=== PATIENT | male | born 1960 | race Caucasian/White ===

== ENCOUNTER 2017-04-11 08:30 | Outpatient (RCR) | payer OTHER, SELFPAY ==
--- NOTE | 2017-03-28 14:04 | HP.PTEVAL_ITS ---
Patient's Visit Information KOKO GAGE is a 56 year old M referred to Physical Therapy by EMERITA Carver NP.SELLWO with a diagnosis of s/p peroneal nerve release. Date of Evaluation: 03/28/17 Physical Therapist: Abigail Estevez - Visit Plan Frequency: 2x /Week Duration: 6 Weeks Plan: 2X/ week for 8 visits to increase L foot PROM, AAROM, AROM, gait training , LE strengthening with HEP - Subjective Subjective: Pt reports that back in January They did surgery in leg to relieve pressure on the nerve to hopefully get foot to move better. Now he can move it a tiny bit. They want him to do PT on the foot. He goes in for surgery on apr 14 on his back....possibility of rods and pins in back. Will have to put PT on Hold for back surgery. On Apr 03 of last year he wrapped his trunck around a pole and put rods and pins in his hip and out of the hospital had a serious case of drop foot...the nerve from knee to ankle was on nerve conduction test and they cut into that to relieve the pressure on that nerve. It has helped a little bit. They dont know how much he will get back. His back has DDD and the accidne t accelerated it. He has rods and pins in his neck as well. He can stand 10-15 min before legs will give out on him. Pins and needles in his feet constantly. He has neuropathy.....His whole L side is mumb including his tongue from the accident. He walks with a cane - Pain Neck Pain Intensity (Out of 10): 6 l leg pain Pain Intensity (Out of 10): 6 back pain Pain Intensity (Out of 10): 3 - Objective Palpation: Cold to the touch of the L foot and ankle. Gait: Walks with decreased stance time on the L and increase circumduction to clear L foot with a straight cane. L ankle AROM: DF -40 degrees, INV 12 degrees, EV 8 degrees, 51 degrees PF. L ankle MMT: DF 2-/5, PF 2-/5, EV 3+/5 and INV 3+/5 - Goals Goal 1:: I HEP Goal Time Frame: 4-6 Weeks Goal 2:: Increase L ankle DF to -20 degrees from neutral Goal Time Frame: 4-6 Weeks Goal 3:: Walk with a straight cane with more heel to toe gait pattern Goal Time Frame: 4-6 Weeks - Rehabilitation Potential Rehabilitation Potential: Good - Anticipated Interventions Patient/Client Instruction: Educate patient on: Condition, Plan of Care For the Purpose of:: To increase ROM, To improve nutrient delivery to tissue, To improve muscle performance and motor function, To improve performance and independence with ADL's, To improve gait and locomotor functions, To improve health of tissue, To decrease soft tissue restriction, To increase flexibility/ ROM Therapeutic Exercise to Include: Strength training, Balance training, Flexibilty training, Gait and locomotor training, Neuromotor development, Passive ROM, Active ROM For the Purpose of:: To decrease pain, To increase ROM, To improve nutrient delivery to tissue, To improve muscle performance and motor function, To improve ability to perform ADL's, To improve performance and independence with ADL's, To improve gait and locomotor functions, To improve health of tissue, To decrease soft tissue restriction, To increase flexibility/ROM, To improve endurance Manual Therapy Techniques to Include: Passive ROM, Soft tissue mobilization For the Purpose of:: To improve health of tissue, To decrease soft tissue restriction, To increase flexibility/ROM Functional electric stimulation: Yes For the Purpose of:: To increase ROM, To improve nutrient delivery to tissue, To improve muscle performance and motor function, To increase flexibility/ROM Thank you for the opportunity to evaluate your patient. For Medicare and Medicare HMO plans, please review the plan of care and approve it. It will need to be FAXED BACK to us at [phone] for Medicare purposes. Please let me know if there are questions or concerns regarding this plan of care. Physician Signature: Date:
--- NOTE | 2017-08-22 14:13 | HP.PTDCNRP_ITS ---
HP - Discharge Summary (1) - Patient Information KOKO GAGE was seen in my office for initial evaluation on 03/28/17. The following Plan of Care was established for this patient: Initial Frequency: 2x /Week Initial Duration: 6 Weeks - Anticipated Interventions Patient/Client Instruction: Educate patient on: Condition, Plan of Care For the Purpose of:: To increase ROM, To improve nutrient delivery to tissue, To improve muscle performance and motor function, To improve performance and independence with ADL's, To improve gait and locomotor functions, To improve health of tissue, To decrease soft tissue restriction, To increase flexibility/ ROM Therapeutic Exercise to Include: Strength training, Balance training, Flexibilty training, Gait and locomotor training, Neuromotor development, Passive ROM, Active ROM For the Purpose of:: To decrease pain, To increase ROM, To improve nutrient delivery to tissue, To improve muscle performance and motor function, To improve ability to perform ADL's, To improve performance and independence with ADL's, To improve gait and locomotor functions, To improve health of tissue, To decrease soft tissue restriction, To increase flexibility/ROM, To improve endurance Manual Therapy Techniques to Include: Passive ROM, Soft tissue mobilization For the Purpose of:: To improve health of tissue, To decrease soft tissue restriction, To increase flexibility/ROM Functional electric stimulation: Yes For the Purpose of:: To increase ROM, To improve nutrient delivery to tissue, To improve muscle performance and motor function, To increase flexibility/ROM This patient was last seen in our office 04/11/17. Pertinent comments regarding their Physical therapy will appear below: DC PT At this point I will be discontinuing this patient from physical therapy. I would be happy to see this patient again in the future if found appropriate by the physician. Thank you! Abigail Estevez
== END 2017-04-11 19:00 | disposition home or self-care (01) ==
LOC: PT 08:30
PROVIDERS: Visit Provider Nurse Practitioner
DX: S94.2 Injury of deep peroneal nerve at ankle and foot level (principal); X58.XXXD Exposure to other specified factors, subsequent encounter
CPT/HCPCS: 97110; 97161; G8978; G8979

== ENCOUNTER 2017-05-27 10:00 | Outpatient (RCR) | payer OTHER, SELFPAY ==
--- NOTE | 2017-04-28 12:24 | HP.PTEVAL_ITS ---
Patient's Visit Information KOKO GAGE is a 56 year old M referred to Physical Therapy by EMERITA Carver NP.SELLWO with a diagnosis of Lumbar Laminectomy. Date of Evaluation: 04/28/17 Physical Therapist: Abigail Estevez - Visit Plan Frequency: 2x /Week Duration: 4 Weeks Plan: 2X/ week for 4 weeks for LE stretching, light trunk AROM, core stability, L LE strengthening with HEP and modalitite if needed. - Subjective Subjective: Pt had surgery 2 weeks ago today (Apr 14). He thinks that it has helped some with his legs and the burning in his feet. He reports that his hip joints now hurt when on them a lot. He has a 5# lifting restriction and not supposed to be twisting. He sees the Surgeon on FriApr 30 and hoping some of his restrictions are lifted. He is having trouble putting socks on, still dragging the L foot, still uses the cane. He is sleeping at night and in a bed. He has not done any stairs since the surgery. He is able to sit to stand without the use of his UE's. He takes the oxycodone only in the morning unless he starts to hurt during the jose. Takes tylenol at night so he can sleep through the night. - Pain Back pain Pain Intensity (Out of 10): 0 L leg pain Pain Intensity (Out of 10): 0 - Objective Trunk AROM: flexion 50%, Ext 25%, SB B 50%. LE MMT: hip flex R 4/5 and L 3-/5 , R knee ext 4/5 and L 3-/5, R knee flex 4/5 and L knee flex 4-/5, hip abd R 4/ 5 and L 4-/5, able to do 1/2 ROM bridge. Only able to heel and toe raise on the R. L DF - 20 degrees DF. Tight HS B and gastroc stretching B. B HS and gastroc tightness. B Patellar DTR 2+/3 - Goals Goal 1:: I HEP Goal Time Frame: 4-6 Weeks Goal 2:: Increase L hip and knee strength by 1/2 muscle grade each plain. (At time of eval: LE MMT: hip flex R 4/5 and L 3-/5, R knee ext 4/5 and L 3-/5, R knee flex 4/5 and L knee flex 4-/5, hip abd R 4/5 and L 4-/5, able to do 1/2 ROM bridge. Goal Time Frame: 4-6 Weeks Goal 3:: Increase L ankle DF to -15 degrees from neutral Goal Time Frame: 4-6 Weeks Goal 4:: Decrease LBP to 2/10 with ADL's and gait. Goal Time Frame: 4-6 Weeks - Rehabilitation Potential Rehabilitation Potential: Good - Anticipated Interventions Patient/Client Instruction: Educate patient on: Plan of Care For the Purpose of:: To decrease pain, To decrease swelling/inflammation, To increase ROM, To improve nutrient delivery to tissue, To improve muscle performance and motor function, To improve ability to perform ADL's, To improve performance and independence with ADL's, To improve gait and locomotor functions , To improve health of tissue, To decrease soft tissue restriction, To increase flexibility/ROM Therapeutic Exercise to Include: Strength training, Postural training, Flexibilty training, Gait and locomotor training, Neuromotor development, Passive ROM, Active ROM, Dynamic Lumbar Stabilization For the Purpose of:: To decrease pain, To decrease swelling/inflammation, To increase ROM, To improve nutrient delivery to tissue, To improve muscle performance and motor function, To improve ability to perform ADL's, To increase tolerance to activity/condition/position, To improve ability of physical actions for home/community/work/leisure, To improve gait and locomotor functions, To improve health of tissue, To decrease soft tissue restriction, To increase flexibility/ROM Functional Training to Include: Gait training For the Purpose of:: To improve gait and locomotor functions, To improve safety with gait Manual Therapy Techniques to Include: Passive ROM, Soft tissue mobilization For the Purpose of:: To improve nutrient delivery to tissue, To improve health of tissue, To decrease soft tissue restriction, To increase flexibility/ROM IF ES: Yes Cryotherapy (ice pack, ice massage): Yes Thermo therapy (hot pack): Yes Ultrasound (thermal/non thermal): Yes For the Purpose of:: To decrease pain, To decrease swelling/inflammation, To improve nutrient delivery to tissue Thank you for the opportunity to evaluate your patient. For Medicare and Medicare HMO plans, please review the plan of care and approve it. It will need to be FAXED BACK to us at [phone] for Medicare purposes. Please let me know if there are questions or concerns regarding this plan of care. Physician Signature: Date:
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
== END 2017-05-27 19:00 | disposition home or self-care (01) ==
LOC: PT 10:00
PROVIDERS: Visit Provider Nurse Practitioner
DX: Z98.890 Other specified postprocedural states (principal)
CPT/HCPCS: 97110; 97113; 97162; 97530; G8978; G8979

== ENCOUNTER 2018-04-24 09:00 | Outpatient (RCR) | payer OTHER, SELFPAY ==
--- NOTE | 2018-02-24 15:08 | HP.PTEVAL_ITS ---
Patient's Visit Information KOKO GAGE is a 57 year old M referred to Physical Therapy by LAYA RODRIGUEZ with a diagnosis of L trochanteric bursitis s/P ORIF...Pt describes it as a replaced trochante. Date of Evaluation: 02/24/18 Physical Therapist: Abigail Estevez - Visit Plan Frequency: 1x/Week Duration: 2 Months Plan: 1X/ week for 8 weeks per the script for - Subjective Findings: Pt reports that 2 years ago he had plates and screws put in. His hip has started to bother him in May or July and could not lay on back to sleep for more than a month. He could only sleep on L side to get comfortable to sleep. They did MRI on his spine cause they also did spine surgery and that was normal. They did an x-ray of the hip and they told him there was nothing wrong with his hip. The surgeon said that the bursea was not flilled with fluid and the bone was rubbing against the muscle causing the pain. He gave the pt a shot and he feels better. It does feel better since the shot, can sleep better, and also ga ve him a nerve pain med with slight seditive to get him to sleep. He has the most pain with sitting and laying down. If he sits on his R hip he does not have as much pain as if he sits with equal weight. He quit doing his exercises cause it hurt too bad. He walks with a cane for about 6-7 months. He does not use it at home cause he holds onto things at home. He has N&T perminantly on the L side and has foot drop on the L. He had a brace for his foot but it hurt to bad to wear it...so now he is getting a custom one on . stairs: tries to go up and down recip with a railing. sit to stand from a chair...has to use arms to get up. - Pain L hip pain Pain Intensity (Out of 10): 3 - Objective Gait: walks with L hip flexion to help clear L drop foot with a cane. IF he does not walk with extreme hip flexion then he drops his L foot and trips on it (AFO coming this per patient). LE MMT: hip flex R 4-/5, L hip flex 3- /5, R hip abd 4/5 and L 3-/5, Bridge able to do 1/4 normal ROM, R knee flex 4-/5 and L knee flex 3+/5, R knee ext 4/5 and L 3+/5, L foot drop. Tight HS B and gastroc B. Pt struggles with rolling over in bed. Sit to stand: pt needs UE to get out of a chair. Unable to SLR on the L - Goals Goal 1:: I HEP Goal Time Frame: 2 Weeks Goal 2:: Decrease L hip pain to 1/10 with ADL's Goal Time Frame: 6-8 Weeks Goal 3:: Be able to walk with less hip flexion/circumduction with strength and the addition of a L AFO Goal Time Frame: 6-8 Weeks Goal 4:: Increase L LE strength....(at time of the eval: LE MMT: hip flex R 4- /5, L hip flex 3-/5, R hip abd 4/5 and L 3-/5, Bridge able to do 1/4 normal ROM, R knee flex 4-/5 and L knee flex 3+/5, R knee ext 4/5 and L 3+/5, L foot drop). Goal Time Frame: 6-8 Weeks - Rehabilitation Potential Rehabilitation Potential: Good - Anticipated Interventions Patient/Client Instruction: Educate patient on: Condition, Plan of Care For the Purpose of:: To decrease pain, To decrease swelling/inflammation, To increase ROM, To improve nutrient delivery to tissue, To improve muscle performance and motor function, To improve ability to perform ADL's, To increase tolerance to activity/condition/position, To improve performance and independence with ADL's, To improve ability of physical actions for home/community/work/leisure, To improve gait and locomotor functions, To improve health of tissue, To decrease soft tissue restriction, To improve balance, To improve safety with gait Therapeutic Exercise to Include: Strength training, Balance training, Gait and locomotor training, Active ROM, Dynamic Lumbar Stabilization For the Purpose of:: To decrease pain, To increase ROM, To improve nutrient delivery to tissue, To improve muscle performance and motor function, To improve ability to perform ADL's, To increase tolerance to activity/condition/position, To improve performance and independence with ADL's, To improve ability of physical actions for home/community/work/leisure, To improve gait and locomotor functions, To improve health of tissue, To improve balance Functional Training to Include: Gait training For the Purpose of:: To improve safety with gait Thank you for the opportunity to evaluate your patient. For Medicare and Medicare HMO plans, please review the plan of care and approve it. It will need to be FAXED BACK to us at [phone] for Medicare purposes. For Medicare only, by signing this I certify the plan of care. Please let me know if there are questions or concerns regarding this plan of care. Physician Signature: Date:
--- NOTE | 2018-04-24 09:30 | HP.PTDCSUM_ITS ---
HP - PT D/C Summary It has been my pleasure to treat KOKO GAGE under orders from LAYA RODRIGUEZ, for the diagnosis of L trochanteric bursitis s/P ORIF...Pt describes it as a replaced trochante for a total of 9 visit(s). Discharge Date: 04/24/18 Please see the following information for a summary of their discharge status. - Subjective Subjective: Pt reports that he is doing overall...his L side is about 6/10 average... His brace is going.... he reports that he still needs to get used to it. He reports that he hardly trips at all. - Pain L hip pain Pain Intensity (Out of 10): 6 R hip Pain Intensity (Out of 10): 0 Back pain Pain Intensity (Out of 10): 4 - Overall Improvement % Improvement: 30 - Objective Objective/Function: Gait: walks with WBOS still....improved heel to toe and less circumduction. Stairs: evidence of weakness when ascending the stairs with his L leg first... no toe catching today. at time of the eval: LE MMT: hip flex R 4-/5, L hip flex 3-/5, R hip abd 4/5 and L 3+/5, Bridge able to do 1/2 normal ROM, R knee flex 4-/5 and L knee flex 3+/5, R knee ext 4/5 and L 3+/5, L foot drop). - Goals Goal 1:: I HEP Goal Progress: Goal Met Goal 2:: Decrease L hip pain to 1/10 with ADL's Goal Progress: Not Progressing Goal 3:: Be able to walk with less hip flexion/circumduction with strength and the addition of a L AFO Goal Progress: Progressing Goal 4:: Increase L LE strength....(at time of the eval: LE MMT: hip flex R 4- /5, L hip flex 3-/5, R hip abd 4/5 and L 3-/5, Bridge able to do 1/4 normal ROM, R knee flex 4-/5 and L knee flex 3+/5, R knee ext 4/5 and L 3+/5, L foot drop). Goal Progress: Progressing - Plan Plan: DC PT to [facility] program - D/C Information Discharge Comments: DC PT to [facility] program. If there are questions or concerns regarding this patient's physical therapy, please feel free to call me at [phone]. Thank you for the referral of this patient. Sincerely, Abigail Estevez, MPT
== END 2018-04-24 19:00 | disposition home or self-care (01) ==
LOC: PT 09:00
DX: M70.62 Trochanteric bursitis, left hip (principal)
CPT/HCPCS: 97110; 97161; 97530; G8978; G8979

== ENCOUNTER 2018-11-11 12:30 | Outpatient (RCR) | payer MEDICAID, MEDICARE, SELFPAY ==
--- NOTE | 2018-09-09 17:31 | HP.PTEVAL_ITS ---
Patient's Visit Information KOKO GAGE is a 57 year old M referred to Physical Therapy by KATHLEEN BURGER with a diagnosis of Trochanteric L hip bursitis. Date of Evaluation: 09/09/18 Physical Therapist: VEENA Trinh - Visit Plan Frequency: 2x /Week Duration: 4 Weeks Plan: 2X/ week for 4 weeks for AT for L hip ROM, stretching, strengthening, core stability, gait training with HEP - Subjective Findings: Pt has a tear in cartilage in the hip joint and a lot of degenerative arthritis and the Ortho Dr sent in an order to get a steroid injection in his hip and he wants to see the pt in 3 months and then if the shot helps the pain in a little bit then they will know that it is the hip joint.... if it doesn't help then they will think that it is related to his back. His current symptoms: he has pain in the L groin and the side of the hip joint and he has pain on the lateral side of the leg ( calf area). Walking back to the treatment rooms about killed him. Pt feels that the water therapy did help him last time but then he wanted to get out and do weights and did them for awhile until the pain was just too bad. Pt has a brace for his L foot but he is too painful and can not wear it at this time. - Pain L hip pain Pain Intensity (Out of 10): 6 L calf pain Pain Intensity (Out of 10): 5 back pain Pain Intensity (Out of 10): 0 - Objective Gait: Walks with decreased stance time on the L.... and decreased DF on the L. He walks with a WBOS and with a single point cane with some veering. LE MMT: L hip abd 4-/5, R hip abd 4+/5, L hip flex 3-/4 and R hip flex 4+/5, L knee ext 3- /5 and R knee ext 4+/5, L knee flexion 4-/5 and R knee ext 4+/5. Pt is unable toe raise on the L foot. He is able to do so on the R. Pt has pain with SKC on the L - Goals Goal 1:: I HEP Goal Time Frame: 4-6 Weeks Goal 2:: Walk with more normal gait pattern with more equal weight bearing Goal Time Frame: 4-6 Weeks Goal 3:: Decrease L hip pain to 2/10 with ADL's and walking Goal Time Frame: 4-6 Weeks Goal 4:: Increase L hip strength by 1/2 muscle grade ( at time of eval: LE MMT: L hip abd 4-/5, R hip abd 4+/5, L hip flex 3-/4 and R hip flex 4+/5, L knee ext 3-/5 and R knee ext 4+/5, L knee flexion 4-/5 and R knee ext 4+/5. Pt is unable toe raise on the L foot. He is able to do so on the R). Goal Time Frame: 4-6 Weeks - Rehabilitation Potential Rehabilitation Potential: Good - Anticipated Interventions Patient/Client Instruction: Educate patient on: Condition, Plan of Care For the Purpose of:: To decrease pain, To increase ROM, To improve nutrient delivery to tissue, To improve muscle performance and motor function, To improve ability to perform ADL's, To increase tolerance to activity/condition/position, To decrease level of supervision to perform tasks, To improve ability of physical actions for home/community/work/leisure, To improve gait and locomotor functions, To improve health of tissue, To decrease soft tissue restriction, To increase flexibility/ROM Therapeutic Exercise to Include: Strength training, Balance training, Flexibilty training, Gait and locomotor training, Active ROM, Dynamic Lumbar Stabilization For the Purpose of:: To decrease pain, To increase ROM, To improve nutrient delivery to tissue, To improve muscle performance and motor function, To improve ability to perform ADL's, To increase tolerance to activity/condition/position, To improve performance and independence with ADL's, To improve ability of physical actions for home/community/work/leisure, To improve gait and locomotor functions, To improve health of tissue, To increase flexibility/ROM, To improve safety with gait Functional Training to Include: Gait training For the Purpose of:: To improve gait and locomotor functions Thank you for the opportunity to evaluate your patient. For Medicare and Medicare HMO plans, please review the plan of care and approve it. It will need to be FAXED BACK to us at [phone] for Medicare purposes. For Medicare only, by signing this I certify the plan of care. Please let me know if there are questions or concerns regarding this plan of care. Physician Signature: Date:
--- NOTE | 2018-10-20 11:27 | HP.PTREVAL ---
KATHLEEN BURGER, It has been my pleasure to treat KOKO GAGE over the last 9 visits for Trochanteric L hip bursitis. Please see the progress note below for an update on the physical therapy plan of care! Subjective: Pt reports that the pool was harder towards the end... half way through the water therapy his whole L sided was worse. Pt is going to get a shot the Oct in his lower spine. Pt does not think that the pool is helping. Pt's L side is numb constantly on the L side. Objective/Function: MMT: L hip abd 4/5, R hip abd 4+/5, L hip flex 3+/4 and R hip flex 4+/5, L knee ext 3-/5 and R knee ext 4+/5, L knee flexion 4/5 and R knee ext 4+/5. Pt is unable toe raise on the L foot. He is able to do so on the R). Gait: He walks with decrease stance time on the L LE ( L knee looks like it will give out on him). Palpation: tender over the L greater trochanter. Plan Plan: 2X/ week for 3 weeks for land based therapy to work on strengthening of L LE, neutral spine light core stability, functional gait and stairs with HEP Goals Goal 1:: I HEP Goal Time Frame: 4-6 Weeks Goal Progress: Goal Met Goal 2:: Walk with more normal gait pattern with more equal weight bearing Goal Time Frame: 4-6 Weeks Goal 3:: Decrease L hip pain to 2/10 with ADL's and walking Goal Time Frame: 4-6 Weeks Goal 4:: Increase L hip strength by 1/2 muscle grade ( at time of eval: LE MMT: L hip abd 4-/5, R hip abd 4+/5, L hip flex 3-/4 and R hip flex 4+/5, L knee ext 3-/5 and R knee ext 4+/5, L knee flexion 4-/5 and R knee ext 4+/5. Pt is unable toe raise on the L foot. He is able to do so on the R). Goal Time Frame: 4-6 Weeks Goal Progress: Progressing Anticipated Interventions Patient/Client Instruction: Educate patient on: Condition, Plan of Care For the Purpose of:: To decrease pain, To increase ROM, To improve nutrient delivery to tissue, To improve muscle performance and motor function, To improve ability to perform ADL's, To increase tolerance to activity/condition/position, To decrease level of supervision to perform tasks, To improve ability of physical actions for home/community/work/leisure, To improve gait and locomotor functions, To improve health of tissue, To decrease soft tissue restriction, To increase flexibility/ROM Therapeutic Exercise to Include: Strength training, Balance training, Flexibilty training, Gait and locomotor training, Active ROM, Dynamic Lumbar Stabilization For the Purpose of:: To decrease pain, To increase ROM, To improve nutrient delivery to tissue, To improve muscle performance and motor function, To improve ability to perform ADL's, To increase tolerance to activity/condition/position, To improve performance and independence with ADL's, To improve ability of physical actions for home/community/work/leisure, To improve gait and locomotor functions, To improve health of tissue, To increase flexibility/ROM, To improve safety with gait Functional Training to Include: Gait training For the Purpose of:: To improve gait and locomotor functions Please do not hesitate to contact me at [phone] by phone or if you have questions or concerns regarding this new plan of care! Sincerely, Abigail Estevez, MPT
--- NOTE | 2018-11-11 12:47 | HP.PTREVAL ---
KATHLEEN UBRGER, It has been my pleasure to treat KOKO GAGE over the last 13 visits for Trochanteric L hip bursitis. Please see the progress note below for an update on the physical therapy plan of care! Subjective: Pt had 3 shots in his back yesterday. He has to go back in december for more. He wants to be on hold for PT as he wants to talk to his Dr before hand Objective/Function: LE MMT has remained unchanged: L hip abd 4-/5, R hip abd 4+/5, L hip flex 3-/4 and R hip flex 4+/5, L knee ext 3-/5 and R knee ext 4+/5, L knee flexion 4-/5 and R knee ext 4+/5. Pt is unable toe raise on the L foot. He is able to do so on the R). Gait: Walks with L leg drag without his L AFO and without his cane and decrease weight shift onto the L LE with gait. Plan Plan: HOLD PT for now. Pt will call in after Dr appointment in a few weeks. Goals Goal 1:: I HEP Goal Time Frame: 4-6 Weeks Goal Progress: Goal Met Goal 2:: Walk with more normal gait pattern with more equal weight bearing Goal Time Frame: 4-6 Weeks Goal 3:: Decrease L hip pain to 2/10 with ADL's and walking Goal Time Frame: 4-6 Weeks Goal Progress: Not Progressing Goal 4:: Increase L hip strength by 1/2 muscle grade ( at time of eval: LE MMT: L hip abd 4-/5, R hip abd 4+/5, L hip flex 3-/4 and R hip flex 4+/5, L knee ext 3-/5 and R knee ext 4+/5, L knee flexion 4-/5 and R knee ext 4+/5. Pt is unable toe raise on the L foot. He is able to do so on the R). Goal Time Frame: 4-6 Weeks Goal Progress: Progressing Anticipated Interventions Patient/Client Instruction: Educate patient on: Condition, Plan of Care For the Purpose of:: To decrease pain, To increase ROM, To improve nutrient delivery to tissue, To improve muscle performance and motor function, To improve ability to perform ADL's, To increase tolerance to activity/condition/position, To decrease level of supervision to perform tasks, To improve ability of physical actions for home/community/work/leisure, To improve gait and locomotor functions, To improve health of tissue, To decrease soft tissue restriction, To increase flexibility/ROM Therapeutic Exercise to Include: Strength training, Balance training, Flexibilty training, Gait and locomotor training, Active ROM, Dynamic Lumbar Stabilization For the Purpose of:: To decrease pain, To increase ROM, To improve nutrient delivery to tissue, To improve muscle performance and motor function, To improve ability to perform ADL's, To increase tolerance to activity/condition/position, To improve performance and independence with ADL's, To improve ability of physical actions for home/community/work/leisure, To improve gait and locomotor functions, To improve health of tissue, To increase flexibility/ROM, To improve safety with gait Functional Training to Include: Gait training For the Purpose of:: To improve gait and locomotor functions Please do not hesitate to contact me at [phone] by phone or if you have questions or concerns regarding this new plan of care! Sincerely, Abigail Estevez, MPT
--- NOTE | 2019-01-05 11:26 | HP.PTDCSUM ---
HP - PT D/C Summary It has been my pleasure to treat KOKO GAGE under orders from KATHLEEN BURGER, for the diagnosis of Trochanteric L hip bursitis for a total of 13 visit(s). Discharge Date: 01/05/19 Please see the following information for a summary of their discharge status. - Subjective Subjective: Pt had 3 shots in his back yesterday. He has to go back in december for more. He wants to be on hold for PT as he wants to talk to his Dr before hand - Pain L hip pain Pain Intensity (Out of 10): 5 L calf pain Pain Intensity (Out of 10): 5 back pain Pain Intensity (Out of 10): 4 - Overall Improvement % Improvement: 30 - Objective Objective/Function: LE MMT has remained unchanged: L hip abd 4-/5, R hip abd 4+/5, L hip flex 3-/4 and R hip flex 4+/5, L knee ext 3-/5 and R knee ext 4+/5, L knee flexion 4-/5 and R knee ext 4+/5. Pt is unable toe raise on the L foot. He is able to do so on the R). Gait: Walks with L leg drag without his L AFO and without his cane and decrease weight shift onto the L LE with gait. - Goals Goal 1:: I HEP Goal Progress: Goal Met Goal 2:: Walk with more normal gait pattern with more equal weight bearing Goal 3:: Decrease L hip pain to 2/10 with ADL's and walking Goal Progress: Not Progressing Goal 4:: Increase L hip strength by 1/2 muscle grade ( at time of eval: LE MMT: L hip abd 4-/5, R hip abd 4+/5, L hip flex 3-/4 and R hip flex 4+/5, L knee ext 3-/5 and R knee ext 4+/5, L knee flexion 4-/5 and R knee ext 4+/5. Pt is unable toe raise on the L foot. He is able to do so on the R). Goal Progress: Progressing - Plan Plan: HOLD PT for now. Pt will call in after Dr appointment in a few weeks. - D/C Information Discharge Comments: DC PT If there are questions or concerns regarding this patient's physical therapy, please feel free to call me at [phone]. Thank you for the referral of this patient. Sincerely, Abigail Estevez MPT
== END 2018-11-11 19:00 | disposition home or self-care (01) ==
LOC: PT 12:30
DX: M70.62 Trochanteric bursitis, left hip (principal)
CPT/HCPCS: 97110; 97113; 97161; 97530

== ENCOUNTER 2020-05-30 10:00 | Outpatient (RCR) | payer OTHER, MEDICARE, SELFPAY ==
--- NOTE | 2020-04-19 13:55 | HP.PTEVAL_ITS ---
Patient's Visit Information KOKO GAGE is a 59 year old M referred to Physical Therapy by PROSPER CALLE with a diagnosis of S/P conversion L KACEY on 03-31-2020. 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 He has some pain 2/10. He wakes up if he rolls onto his L side. He takes a pill cause he has spasms in his legs when laying down and that quiets them spasms down. He has an AFO but he does not want to put it on until he is stronger and heels cause it was making his hip worse with it on prior to surgery. He might try the AFO tomm. Since his hip surgery he feels that his foot works better. He feels that the muscles are reattached better this surgery then the last surgery. He is using a cane now cause his back hurt his back. He is WBAT on the L LE. He has 2 steps from kitchen int othe garage and has a railing and does that just fine. He has hand rails on his toilet seat. The other day he went to sit down on the toilet and he felt something pop in his groin and it hurt... now it hurts off and on. - Pain L hip pain Pain Intensity (Out of 10): 2 - Objective Reviewed not crossing legs or ankles, no hip flexion greater than 90 degrees, and no pivioting on his L foot. Gait: straight cane, walks with increase s teppage gait on the L and increase L drop foot (which was there prior to surgery). PROM L hip flexion to 90 degrees. Pt is able to SLR. LE MMT: L hip flex 3+/5, Knee flex and ext 4-/5, hip abd 3+/5 DF 3-/5. R hip flex 4/5, knee flex and ext 4/5, hip abd NT, DF 4+/5. Pt is able to get up from the chair with use of his UE on the rails of the chair - Goals Goal 1:: I HEP Goal Time Frame: 4-6 Weeks Goal 2:: Increase L hip strength to 4/5 hip abd and hip flexion Goal Time Frame: 4-6 Weeks Goal 3:: Be able to go up and down steps recip with 1 hand rail for safety without hessitation Goal Time Frame: 4-6 Weeks Goal 4:: Be able to sleep through the night without having pain Goal Time Frame: 4-6 Weeks - Rehabilitation Potential Rehabilitation Potential: Good - Anticipated Interventions Patient/Client Instruction: Educate patient on: Condition, Plan of Care For the Purpose of:: To decrease pain, To increase ROM, To improve nutrient delivery to tissue, To increase oxygenation perfusion, To improve muscle performance and motor function, To improve ability to perform ADL's, To increase tolerance to activity/condition/position, To improve performance and independence with ADL's, To decrease level of supervision to perform tasks, To improve ability of physical actions for home/community/work/leisure, To improve gait and locomotor functions, To improve health of tissue, To increase flexibility/ROM, To improve balance, To improve safety with gait Therapeutic Exercise to Include: Strength training, Endurance training, Balance training, Body mechanics, Postural training, Gait and locomotor training, Neuromotor development, Active ROM For the Purpose of:: To decrease pain, To decrease swelling/inflammation, To increase ROM, To improve nutrient delivery to tissue, To improve muscle performance and motor function, To improve ability to perform ADL's, To increase tolerance to activity/condition/position, To improve performance and independence with ADL's, To decrease level of supervision to perform tasks, To improve ability of physical actions for home/community/work/leisure, To improve gait and locomotor functions, To improve health of tissue, To decrease soft tissue restriction, To improve balance, To improve safety with gait Functional Training to Include: Gait training For the Purpose of:: To improve gait and locomotor functions Thank you for the opportunity to evaluate your patient. For Medicare and Medicare HMO plans, please review the plan of care and approve it. It will need to be FAXED BACK to us at [phone] for Medicare purposes. For Medicare only, by signing this I certify the plan of care. Please let me know if there are questions or concerns regarding this plan of care. Physician Signature: Date:
--- NOTE | 2020-05-30 10:58 | HP.PTDCSUM ---
It has been my pleasure to treat KOKO GAGE referred by PROSPER CALLE, with the diagnosis of S/P conversion L KACEY on 03-31-2020 for a total of 15 visit(s). Discharge Date: 05/30/20 Please see the following information for a summary of their discharge status. Subjective: Pt reports that he does walk much better with his AFO on. He still complains of L joint soreness that his Dr reports will take time to heal. Pt will try and come in here 2-3 X/ week to work on gym equipment and the bike. L hip pain Pain Intensity (Out of 10): 3 Back pain Pain Intensity (Out of 10): 1 L lateral thigh pain Pain Intensity (Out of 10): 3 % Improvement: 75 Objective/Function: Pt walks much better with his AFO.... less veering and no catching his toe. RECOMMEND PT as for a spring in his AFO to assist in more DF to prevent tripping on the stairs off of curbs etc. Goal 1:: I HEP Goal Progress: Goal Met Goal 2:: Increase L hip strength to 4/5 hip abd and hip flexion Goal Progress: Progressing Goal 3:: Be able to go up and down steps recip with 1 hand rail for safety without hessitation Goal Progress: Goal Met Goal 4:: Be able to sleep through the night without having pain Goal Progress: Goal Met Plan: I H&W program to continue with strengthening. Recommend pt put his L AFO back on as he has tripped several times without it and with a cane. Discharge Comments: DC PT to [facility] If there are questions or concerns regarding this patient's physical therapy, please feel free to call me at [phone]. Thank you for the referral of this patient. Sincerely, Abigail Estevez, MPT
== END 2020-05-30 19:00 | disposition home or self-care (01) ==
LOC: PT 10:00
DX: Z96.698 Presence of other orthopedic joint implants (principal)
CPT/HCPCS: 97110; 97116; 97161; 97530

== ENCOUNTER 2021-02-13 10:08 | Emergency (ER) | payer OTHER, SELFPAY ==
[2021-02-13 10:09] VITALS: BP 132/87; PULSE 94; RESP 20; TEMP 36.4; O2SAT 98; BMI 29.4
--- NOTE | 2021-02-13 10:19 | EX.ED.UPPERE ---
HPI History of Present Illness Chief Complaint: Upper Extremity Injury Informant: patient Narrative Narrative: 60-year-old male presents to the emergency department for the evaluation of left wrist pain. Patient states that yesterday he was trying to get a tire off of a vehicle and he hit it with his left hand. He states he immediately had pain over the volar radial aspect that progressively worsened during the day. He is left-handed. He states that his thumb feels numb. PFSH PFS Medical History (Updated 02/13/21 @ 11:[address] Luan Botello DO) COPD (chronic obstructive pulmonary disease) Home Medications albuterol sulfate [Ventolin HFA] 1 - 2 puff INHALATION Q6H PRN PRN 04/15/16 [History Last Taken Unknown] budesonide-formoterol [Symbicort] 1 puff DAILY 04/15/16 [History Last Taken Unknown] polyethylene glycol 3350 17 g PO PRN PRN 04/15/16 [History Last Taken Unknown] sennosides-docusate sodium 2 tab PO BID 04/15/16 [History Last Taken 04/15/16 12:45] omeprazole 40 mg PO/SL DAILY 02/13/21 [History Last Taken Unknown] Allergy/AdvReac Type Severity Reaction Status Date / Time guaifenesin AdvReac Upset Verified 02/13/21 10:11 Stomach Surgical History (Updated 02/13/21 @ 10:[address] Luan Botello DO) S/P ORIF (open reduction internal fixation) fracture Social History (Updated 02/13/21 @ 10:[address] Luan Botello DO) Smoking Status: Current every day smoker tobacco type: cigarettes substance use type: does not use ROS ROS ED Constitutional Constitutional ED: Denies chills, fever(s) or weight loss Eyes Eyes: Denies change in vision or diplopia ENT ENT ED: Denies ear pain, rhinorrhea or sore throat Cardiovascular Cardiovascular: Denies chest pain, orthopnea, palpitations or racing heartbeat Respiratory/Chest Respiratory/Chest: Denies cough, dyspnea or orthopnea Gastrointestinal Gastrointestinal: Denies abdominal pain, diarrhea, nausea or vomiting Genitourinary Genitourinary ED: Denies dysuria, hematuria or urinary frequency Musculoskeletal Musculoskeletal: Reports other Details: See history of present illness ; Denies arthralgias or myalgias Integumentary Denies abscess or rash Neurologic Neurologic: Denies headache(s) or weakness Psychiatric Psychiatric: Denies anxiety, depression, suicidal ideation or suicidal thoughts Endocrine Endocrinology: Denies polydipsia, polyphagia or polyuria Allergic/Immunologic Allergic/Immunologic ED: Denies mouth swelling, tongue swelling or urticaria EXAM Physical Exam Const Vital Signs: 02/13/21 10:09 Temperature 97.6 F L Temperature Source Temporal Pulse Rate 94 Respiratory Rate 20 H Blood Pressure 132/87 H Blood Pressure Mean 102 Pulse Ox 98 Oxygen Delivery Method Room Air Positive well nourished and well developed General Appearance ED: well developed HEENT Reports normocephalic, head/scalp atraumatic and moist mucous membranes normocephalic and atraumatic Eyes PERRL and EOMs intact bilaterally Neck no lymphadenopathy, supple and no JVD Resp normal respiratory effort and clear to auscultation bilaterally Cardio regular rate, regular rhythm and no murmurs GI normal to inspection, nondistended, normoactive bowel sounds and non-tender Palpation: soft Back/Spine no CVA tenderness and normal ROM Extremity Extremity Narrative: Patient has tenderness palpation of the volar radial aspect of the left wrist. There is minimal tenderness on the dorsal aspect. Neurovascularly appears intact distally. Normal opposition. Painful range of motion however. General Extremety ED: Negative for edema General Extremity: Negative for edema Neuro oriented x3 and CN's II-XII intact bilaterally Sensorium / Orientation: alert Motor Exam: strength 5/5 throughout Psych mental status grossly normal Mood & Affect: Negative for depressed or tearful Skin no rashes or lesions noted and no wounds MDM MDM MDM Narrative Medical decision making narrative: My interpretation of the plain films of the left wrist is no acute fracture. Radiology concurs. Patient will be placed in a Velcro wrist splint. Anti-inflammatories ice and rest. Follow-up with primary care 10 to 14 days if not improved Discharge Plan Triage Chief Complaint: Upper Extremity Injury ED Provider: Luan Botello Dx/Rx/DC Orders Clinical Impression: Left wrist sprain Instructions: ED Wrist Sprain Prescriptions: No Action polyethylene glycol 3350 17 GM powder in packet 17 g PO PRN PRN (Reason: Constipation) RF: 0 sennosides-docusate sodium 1 EACH tablet 2 tab PO BID RF: 0 albuterol sulfate [Ventolin HFA] 1 INHALER inhaler 1 - 2 puff inhalation Q6H PRN PRN (Reason: Wheezing) RF: 0 budesonide-formoterol [Symbicort] 1 INHALER inhaler 1 puff DAILY RF: 0 omeprazole 40 mg PO/SL DAILY RF: 0 [facility] [Primary Care Provider] - 10-14 Days if not better Disposition Disposition: Home, Self Care
--- NOTE | 2021-02-13 10:25 | RAD_ITS ---
STUDY: X-RAY - LEFT WRIST REASON FOR EXAM: Left wrist pain, left wrist injury yesterday. TECHNIQUE: 3 view(s) of the wrist were obtained. COMPARISON: None. FINDINGS: Normal visualized distal radius and ulna. Normal radiocarpal articulation. Normal distal radioulnar articulation. Normal carpal bones. Normal carpal articulations. Normal carpometacarpal articulation of the thumb. Normal second through fifth carpometacarpal articulations. Normal visualized metacarpal bones. The soft tissue structures are unremarkable. RAD/Wrist min 3 Views IMPRESSION: No demonstrated left wrist fracture. Electronically Signed: Miles Ordoñez MD at 10:56 EST Tel , Service support ,
[2021-02-13 11:24] VITALS: BP 139/84; PULSE 87
== END 2021-02-13 11:26 | disposition home or self-care (01) ==
PROVIDERS: Emergency Provider Emergency Medicine
DX: S63.502A Unspecified sprain of left wrist, initial encounter (principal); W22.8XXA Striking against or struck by other objects, initial encounter; Y93.9 Activity, unspecified; Y92.9 Unspecified place or not applicable; J44.9 Chronic obstructive pulmonary disease, unspecified; F17.210 Nicotine dependence, cigarettes, uncomplicated
CPT/HCPCS: 73110; 99282

== ENCOUNTER 2021-11-21 10:00 | Outpatient (RCR) | payer OTHER, SELFPAY ==
--- NOTE | 2021-10-24 18:11 | HP.PTEVAL ---
Patient's Visit Information KOKO GAGE is a 60 year old M referred to Physical Therapy by GENNY NAIK with a diagnosis of S/P back surgery 10-16-21 (Rods and mesh and fusion). Date of Evaluation: 10/24/21 Physical Therapist: VEENA Trinh - Visit Plan Frequency: 2-3x /Week Duration: 2 Months Plan: 2-3 X/ week for 15 visits for neutral spine core stability, LE strengthening, postural exercises, gait mechanics, balance, with HEP. May use AT, US, MT if needed. - Subjective Pt has surgery on 10-16-2021. He had mesh and rods place that will fuse together between L4/L5/S1. He is not allowed to bend, lift greater than 5# and twist. He is sleeping ok and can sleep on his L side. He takes pain meds from a prior injury. He walks with a straight cane and has for the past month since the pain was so bad. He reports that his balance is off. he has a L AFO. He reports no other weakness. He has been doing a lot of sitting. He goes back to on the to hopefully be released to drive and go back to [employer]. - Pain back pain Pain Intensity (Out of 10): 4 - Objective Gait: Walks with short stride, slight increase veering with a straight cane. (increased pain after walking straight up). Pt has increase back pain walking from the front doors back to the treatment rooms. Pt was able to walk on toes and able to raise his R toes and can not on the L(wears an AFO). Trunk AROM: bend 10% flexion. Patellar DTR's R 2+/3 and L 1+/3. LE MMT: R hip flex 7.5# and L hip flex 4.7#. R knee ext 11.7, and L knee ext 15#. R knee flex 11.5 and L 7.3. R supine hip abd12.3 and L 7.4. + SLR on the L. Pt is able to 1/4 normal ROM bridge. Tight HS B. + SLUMP test B. Sit to stand: Pt is able to get out of the chair without using his arms but it causes increase pain. - Balance/Special Test Scores Oswestry Low Back Score: 20 - Goals Goal 1:: I HEP Goal Time Frame: 8-12 Weeks Goal 2:: Be able to walk around the dept without an AD without back pain. Goal Time Frame: 8-12 Weeks Goal 3:: Increase LE strength. (at time of the eval: LE MMT: R hip flex 7.5# and L hip flex 4.7#. R knee ext 11.7, and L knee ext 15#. R knee flex 11.5 and L 7.3. R supine hip abd12.3 and L 7.4) Goal Time Frame: 8-12 Weeks Goal 4:: Be able to stand 7 hours at his job without pain Goal Time Frame: 8-12 Weeks Goal 5:: Be able to sit to stand without UE support X 10 attempts without pain Goal Time Frame: 8-12 Weeks - Rehabilitation Potential Rehabilitation Potential: Good - Anticipated Interventions Patient/Client Instruction: Educate patient on: Condition, Plan of Care For the Purpose of:: To decrease pain, To increase ROM, To improve nutrient delivery to tissue, To increase oxygenation perfusion, To improve muscle performance and motor function, To improve ability to perform ADL's, To increase tolerance to activity/condition/position, To improve performance and independence with ADL's, To decrease level of supervision to perform tasks, To improve ability of physical actions for home/community/work/leisure, To improve gait and locomotor functions, To improve health of tissue, To decrease soft tissue restriction, To increase flexibility/ROM, To improve endurance, To improve balance, To improve safety with gait Therapeutic Exercise to Include: Strength training, Endurance training, Balance training, Coordination, Body mechanics, Postural training, Flexibilty training, Gait and locomotor training, Neuromotor development, In an aquatic setting, Passive ROM, Active ROM, Dynamic Lumbar Stabilization, Scapular Strength/Stabilization For the Purpose of:: To decrease pain, To decrease swelling/inflammation, To increase ROM, To improve nutrient delivery to tissue, To increase oxygenation perfusion, To improve muscle performance and motor function, To improve ability to perform ADL's, To increase tolerance to activity/condition/position, To improve performance and independence with ADL's, To decrease level of supervision to perform tasks, To improve ability of physical actions for home/community/work/leisure, To improve gait and locomotor functions, To improve health of tissue, To decrease soft tissue restriction, To increase flexibility/ROM, To improve endurance, To improve balance, To improve safety with gait Functional Training to Include: Gait training For the Purpose of:: To improve gait and locomotor functions, To improve safety with gait Manual Therapy Techniques to Include: Functional dry needling, Soft tissue mobilization For the Purpose of:: To decrease pain, To increase ROM, To improve nutrient delivery to tissue, To increase oxygenation perfusion, To improve muscle performance and motor function, To improve ability to perform ADL's Ultrasound (thermal/non thermal): Yes For the Purpose of:: To decrease pain, To increase ROM, To improve nutrient delivery to tissue, To increase oxygenation perfusion, To improve muscle performance and motor function, To improve ability to perform ADL's Thank you for the opportunity to evaluate your patient. For Medicare and Medicare HMO plans, please review the plan of care and approve it. It will need to be FAXED BACK to us at [phone] for Medicare purposes. For Medicare only, by signing this I certify the plan of care. Please let me know if there are questions or concerns regarding this plan of care. Physician Signature: Date:
--- NOTE | 2021-11-21 10:29 | HP.PTREVAL_ITS ---
GENNY NAIK, It has been my pleasure to treat KOKO GAGE over the last 10 visits for S/P back surgery 10-16-21 (Rods and mesh and fusion). Please see the progress note below for an update on the physical therapy plan of care! Subjective: Pt reports that he is better but still has pain. Objective/Function: Sit to stand X 10.... if he uses his hands he has no pain but if he does not use his arms then he has pain. He can not stand for more than an hour which is better than when he first came in. hip flex R 13.8 and L 11.3 and R knee ext 20.4 and l 17.3 and R knee flex 16.1 and L 14.7 Plan Plan: 2-3 X/ week for 15 visits for neutral spine core stability, LE strengthening, postural exercises, gait mechanics, balance, with HEP. May use AT, US, MT if needed. Balance/Gait/Functional tests - Balance/Special Test Scores Oswestry Low Back Score: 19 Goals Goal 1:: I HEP Goal Time Frame: 8-12 Weeks Goal Progress: Progressing Goal 2:: Be able to walk around the dept without an AD without back pain. Goal Time Frame: 8-12 Weeks Goal Progress: Progressing Goal 3:: Increase LE strength. (at time of the eval: LE MMT: R hip flex 7.5# and L hip flex 4.7#. R knee ext 11.7, and L knee ext 15#. R knee flex 11.5 and L 7.3. R supine hip abd12.3 and L 7.4) Goal Time Frame: 8-12 Weeks Goal Progress: Progressing Goal 4:: Be able to stand 7 hours at his job without pain Goal Time Frame: 8-12 Weeks Goal Progress: Progressing Goal 5:: Be able to sit to stand without UE support X 10 attempts without pain Goal Time Frame: 8-12 Weeks Goal Progress: Progressing Anticipated Interventions Patient/Client Instruction: Educate patient on: Condition, Plan of Care For the Purpose of:: To decrease pain, To increase ROM, To improve nutrient delivery to tissue, To increase oxygenation perfusion, To improve muscle performance and motor function, To improve ability to perform ADL's, To increase tolerance to activity/condition/position, To improve performance and in dependence with ADL's, To decrease level of supervision to perform tasks, To improve ability of physical actions for home/community/work/leisure, To improve gait and locomotor functions, To improve health of tissue, To decrease soft tissue restriction, To increase flexibility/ROM, To improve endurance, To improve balance, To improve safety with gait Therapeutic Exercise to Include: Strength training, Endurance training, Balance training, Coordination, Body mechanics, Postural training, Flexibilty training, Gait and locomotor training, Neuromotor development, In an aquatic setting, Passive ROM, Active ROM, Dynamic Lumbar Stabilization, Scapular Strength/Stabilization For the Purpose of:: To decrease pain, To decrease swelling/inflammation, To increase ROM, To improve nutrient delivery to tissue, To increase oxygenation perfusion, To improve muscle performance and motor function, To improve ability to perform ADL's, To increase tolerance to activity/condition/position, To improve performance and independence with ADL's, To decrease level of supervision to perform tasks, To improve ability of physical actions for home/community/work/leisure, To improve gait and locomotor functions, To improve health of tissue, To decrease soft tissue restriction, To increase flexibility/ROM, To improve endurance, To improve balance, To improve safety with gait Functional Training to Include: Gait training For the Purpose of:: To improve gait and locomotor functions, To improve safety with gait Manual Therapy Techniques to Include: Functional dry needling, Soft tissue mobilization For the Purpose of:: To decrease pain, To increase ROM, To improve nutrient delivery to tissue, To increase oxygenation perfusion, To improve muscle performance and motor function, To improve ability to perform ADL's Ultrasound (thermal/non thermal): Yes For the Purpose of:: To decrease pain, To increase ROM, To improve nutrient delivery to tissue, To increase oxygenation perfusion, To improve muscle perform ance and motor function, To improve ability to perform ADL's Please do not hesitate to contact me at [phone] by phone or if you have questions or concerns regarding this new plan of care! Sincerely, VEENA Trinh
--- NOTE | 2022-03-11 09:04 | HP.PTDCNRP_ITS ---
KOKO GAGE was seen in my office for initial evaluation on 10/24/21. The following Plan of Care was established for this patient: Initial Frequency: 2-3x /Week Initial Duration: 2 Months Patient/Client Instruction: Educate patient on: Condition, Plan of Care For the Purpose of:: To decrease pain, To increase ROM, To improve nutrient delivery to tissue, To increase oxygenation perfusion, To improve muscle performance and motor function, To improve ability to perform ADL's, To increase tolerance to activity/condition/position, To improve performance and independence with ADL's, To decrease level of supervision to perform tasks, To improve ability of physical actions for home/community/work/leisure, To improve gait and locomotor functions, To improve health of tissue, To decrease soft tissue restriction, To increase flexibility/ROM, To improve endurance, To improve balance, To improve safety with gait Therapeutic Exercise to Include: Strength training, Endurance training, Balance training, Coordination, Body mechanics, Postural training, Flexibilty training, Gait and locomotor training, Neuromotor development, In an aquatic setting, Passive ROM, Active ROM, Dynamic Lumbar Stabilization, Scapular Strength/Stabilization For the Purpose of:: To decrease pain, To decrease swelling/inflammation, To increase ROM, To improve nutrient delivery to tissue, To increase oxygenation perfusion, To improve muscle performance and motor function, To improve ability to perform ADL's, To increase tolerance to activity/condition/position, To improve performance and independence with ADL's, To decrease level of supervi geov[place] to perform tasks, To improve ability of physical actions for home/community/work/leisure, To improve gait and locomotor functions, To improve health of tissue, To decrease soft tissue restriction, To increase flexibility/ROM, To improve endurance, To improve balance, To improve safety with gait Functional Training to Include: Gait training For the Purpose of:: To improve gait and locomotor functions, To improve safety with gait Manual Therapy Techniques to Include: Functional dry needling, Soft tissue mobilization For the Purpose of:: To decrease pain, To increase ROM, To improve nutrient delivery to tissue, To increase oxygenation perfusion, To improve muscle performance and motor function, To improve ability to perform ADL's Ultrasound (thermal/non thermal): Yes For the Purpose of:: To decrease pain, To increase ROM, To improve nutrient delivery to tissue, To increase oxygenation perfusion, To improve muscle performance and motor function, To improve ability to perform ADL's This patient was last seen in our office 11/21/21. Pertinent comments regarding their Physical therapy will appear below: Pt did not reschedule. DC PT At this point I will be discontinuing this patient from physical therapy. I would be happy to see this patient again in the future if found appropriate by the physician. Thank you! Abigail Estevez, VEENA Balance/Gait/Functional tests - Balance/Special Test Scores Oswestry Low Back Score: 19
== END 2021-11-21 19:00 | disposition home or self-care (01) ==
LOC: PT 10:00
DX: M48.061 Spinal stenosis, lumbar region without neurogenic claudication (principal)
CPT/HCPCS: 97110; 97161

== ENCOUNTER 2022-07-03 15:58 | Emergency (ER) | payer OTHER, SELFPAY ==
[2022-07-03] VITALS (7 sets, daily range): BP systolic 112–141; BP diastolic 75–120; PULSE 81–94; RESP 9–18; TEMP 34.9; O2SAT 91–97; BMI 32.9
--- NOTE | 2022-07-03 16:39 | EDS_ITS ---
HPI History of Present Illness HPI Narrative: Patient presents with left hip pain that began today. 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 Patient states he had a revision of his total hip replacement done 1 month ago. Patient states he was unable to stand and ambulate. Patient denies any paresthesias or weakness. Patient describes the pain as aching and burning. Patient states the pain is worse with any movement of his left lower extremity. Patient denies any head injury or loss of consciousness. Patient denies any other injuries. Chief Complaint: Lower Extremity Injury Informant: patient Onset/Context/Timing Onset: Today Context: Sudden Onset Timing: Continuous Quality of Pain: Aching and Burning Location: Left hip Worsened by: Movement Relieved by: Rest Associated Symptoms Associated Symptoms: Negative for Parasthesia, Weakness or Loss of Funtion [facility] Medical History (Updated 07/03/22 @ 19:[address] Lamont Silva DO) COPD (chronic obstructive pulmonary disease) History of revision of total replacement of left hip joint Home Medications albuterol sulfate 90 mcg/actuation aerosol inhaler (Ventolin HFA) 1 - 2 puff inhalation Q6H PRN PRN Wheezing 04/15/16 [History Last Taken Unknown] budesonide-formoterol HFA 160 mcg-4.5 mcg/actuation aerosol inhaler (Symbicort) 1 puff DAILY 04/15/16 [History Last Taken Unknown] polyethylene glycol 3350 17 gram oral powder packet 17 g PO PRN PRN Constipation 04/15/16 [History Last Taken Unknown] sennosides 8.6 mg-docusate sodium 50 mg tablet 2 tab PO BID 04/15/16 [History Last Taken 04/15/16 12:45] omeprazole 40 mg PO/SL DAILY 02/13/21 [History Last Taken Unknown] Allergy/AdvReac Type Severity Reaction Status Date / Time guaifenesin AdvReac Upset Verified 02/13/21 10:11 Stomach Surgical History (Updated 07/03/22 @ 16:[address] Lamont Silva DO) History of total left hip replacement S/P ORIF (open reduction internal fixation) fracture Social History Smoking Status: Current every day smoker tobacco type: cigarettes substance use type: does not use ROS ROS ED Constitutional Constitutional ED: Denies chills or fever(s) Eyes Eyes: Denies blurry vision or change in vision ENT ENT ED: Denies rhinorrhea or sore throat Cardiovascular Cardiovascular: Denies chest pain or palpitations Respiratory/Chest Respiratory/Chest: Denies cough or dyspnea Gastrointestinal Gastrointestinal: Denies nausea or vomiting Genitourinary Genitourinary ED: Denies dysuria or hematuria Musculoskeletal Musculoskeletal: Reports neck pain; Denies back pain Integumentary Denies abscess or rash Neurologic Neurologic: Denies headache(s) or weakness Allergic/Immunologic Allergic/Immunologic ED: Denies mouth swelling or urticaria EXAM Physical Exam Const Vital Signs: 07/03/22 15:59 07/03/22 18:05 07/03/22 18:10 Temperature 94.9 F L Temperature Source Oral Pulse Rate 94 81 Pulse Rate [1 (Initial Baseline)] 81 Pulse Rate [2] 88 Pulse Rate [3] 87 Pulse Rate [4] 87 Pulse Rate [5] 87 Pulse Rate [6] 84 Respiratory Rate 15 12 Respiratory Rate [1 (Initial Baseline)] 9 L Respiratory Rate [2] 16 Respiratory Rate [3] 18 Respiratory Rate [4] 13 Respiratory Rate [5] 11 L Respiratory Rate [6] 13 Blood Pressure 134/120 H 112/86 H Blood Pressure [1 (Initial Baseline)] 128/92 H Blood Pressure [2] 134/103 H Blood Pressure [3] 141/86 H Blood Pressure [4] 129/75 H Blood Pressure [5] 121/75 H Blood Pressure [6] 116/80 Blood Pressure Mean 124 Pulse Ox 96 95 Oxygen Delivery Method Room Air Room Air Oxygen Delivery Method [1 (Initial Baseline)] Nasal Cannula Oxygen Delivery Method [2] Nasal Cannula Oxygen Delivery Method [4] Nasal Cannula Oxygen Delivery Method [5] Room Air Oxygen Delivery Method [6] Nasal Cannula Oxygen Flow Rate (L/min) Oxygen Flow Rate (L/min) [1 (Initial Baseline)] 2 Oxygen Flow Rate (L/min) [2] 2 Oxygen Flow Rate (L/min) [3] 2 Oxygen Flow Rate (L/min) [4] 4 Oxygen Flow Rate (L/min) [5] 4 Oxygen Flow Rate (L/min) [6] 2 07/03/22 18:54 Temperature Temperature Source Pulse Rate 85 Pulse Rate [1 (Initial Baseline)] Pulse Rate [2] Pulse Rate [3] Pulse Rate [4] Pulse Rate [5] Pulse Rate [6] Respiratory Rate 11 L Respiratory Rate [1 (Initial Baseline)] Respiratory Rate [2] Respiratory Rate [3] Respiratory Rate [4] Respiratory Rate [5] Respiratory Rate [6] Blood Pressure 117/83 H Blood Pressure [1 (Initial Baseline)] Blood Pressure [2] Blood Pressure [3] Blood Pressure [4] Blood Pressure [5] Blood Pressure [6] Blood Pressure Mean 94 Pulse Ox 96 Oxygen Delivery Method Nasal Cannula Oxygen Delivery Method [1 (Initial Baseline)] Oxygen Delivery Method [2] Oxygen Delivery Method [4] Oxygen Delivery Method [5] Oxygen Delivery Method [6] Oxygen Flow Rate (L/min) 2 Oxygen Flow Rate (L/min) [1 (Initial Baseline)] Oxygen Flow Rate (L/min) [2] Oxygen Flow Rate (L/min) [3] Oxygen Flow Rate (L/min) [4] Oxygen Flow Rate (L/min) [5] Oxygen Flow Rate (L/min) [6] Positive well nourished and well developed General Appearance ED: well developed and NAD HEENT normocephalic and atraumatic Extremity Extremity Narrative: The left lower extremity is internally rotated and flexed. There is some shortening noted. Range of motion was limited in all motions of the left lower extremity secondary to pain. Pedal pulses are equal bilaterally. Sensation was intact to light touch bilaterally in the lower extremities. Strength is 5/5 bilaterally in the lower extremities. Neuro oriented x3, CN's II-XII intact bilaterally, moves all extremities and no sensory deficits noted Sensorium / Orientation: alert Motor Exam: strength 5/5 throughout Psych mental status grossly normal MDM MDM MDM Narrative Medical decision making narrative: Differential diagnosis includes dislocation, fracture, and tendon strain. X- rays of the left hip will be obtained to assess for fracture and dislocation. Radiography Diagnostic Testing: Clinical Impression(s) from Imaging Studies Hip/Pelvis X-Ray 07/03/22 17:18 IMPRESSION: Left hip dislocation. Electronically Signed: Lai Webster MD at 17:44 EDT , Hip/Pelvis X-Ray 07/03/22 19:08 IMPRESSION: Successful reduction Electronically Signed: Lai Webster MD at 19:23 EDT , X-rays of the left hip were obtained. There are 3 views. On my independent interpretation, there is a dislocation of the prosthesis of the left hip. There is an old avulsion fracture of the acetabulum. There is no acute fracture. Radiologist also interpreted the x-rays and agrees. Repeat x-rays of the left hip were obtained after reduction. There are 3 views. On my independent interpretation, there is satisfactory reduction of the dislocation. There is no acute fracture. Radiologist also interpreted the x- rays and agrees. Treatment and Re-Evaluation Narrative: Patient was advised of the risks and benefits of conscious sedation. Patient is agreeable with the plan for conscious sedation. Patient was given the opportunity ask questions. No further questions. Patient was placed on continuous cardiac and pulse oximeter monitors. Patient was placed on oxygen by nasal cannula. Patient was given a total of 180 mg of propofol. There were multiple unsuccessful attempts at reduction of the left hip. Patient had no hypoxic episodes. The patient was resedated with [address] Muniz was asked to come in and reduce the hip. He was successful at reducing the hip. Repeat x-rays were obtained. There is satisfactory reduction of the hip. Patient had no hypoxic episodes or dysrhythmias. Patient tolerated procedure well. Knee immobilizer was applied. Patient feels better on reevaluation. Patient was instructed to continue to wear his knee immobilizer until he follows up with his orthopedic surgeon. Patient understands and is agreeable with the plan. All questions were answered. Discharge Plan Triage Chief Complaint: Lower Extremity Injury ED Provider: Lamont Silva Dx/Rx/DC Orders Clinical Impression: Dislocation of hip, left, closed, Tobacco abuse Instructions: ED Hip Replace Dislocation Reduc Prescriptions: No Action polyethylene glycol 3350 17 GM powder in packet 17 g PO PRN PRN (Reason: Constipation) sennosides-docusate sodium 1 EACH tablet 2 tab PO BID albuterol sulfate [Ventolin HFA] 1 INHALER inhaler 1 - 2 puff inhalation Q6H PRN PRN (Reason: Wheezing) budesonide-formoterol [Symbicort] 1 INHALER inhaler 1 puff DAILY omeprazole 40 mg PO/SL DAILY Primary Care Provider: [facility] Referrals: Martin Su MD [Med Staff - Active Staff] - 3-5 Days [facility] [Primary Care Provider] - 5-7 Days Disposition Disposition: Home, Self Care
[2022-07-03] MEDS: Morphine 4 MG/ML Syringe IV (16:52)
--- NOTE | 2022-07-03 17:18 | RAD_ITS ---
STUDY: XR Hip Unilateral with Pelvis when performed; 2-3 Views 07/03/2022 5:24 PM REASON FOR EXAM: Male, 61 years old. Injury/Pain Pain TECHNIQUE: XR Hip Unilateral with Pelvis when performed; 2-3 Views COMPARISON: None FINDINGS: There is a non-specific bowel gas pattern. There is a metal sideplate transfixing the left acetabulum. There are cortical screws holding the plate in place. There are degenerative changes of the lumbar spine. Lumbar spinal fixation hardware. Normal bilateral iliac wings, sacroiliac joints and visualized sacrum. Normal visualized bilateral superior and inferior pubic rami. Normal pubic symphysis. Normal ischial tuberosities. Normal visualized right femoral head. Normal right acetabulum. Normal right hip joint. Total left hip arthroplasty. Prosthetic left acetabulum. Dislocation -left hip joint. RAD/HIP, UNI W/ Pelvis 2-3 Views IMPRESSION: Left hip dislocation. Electronically Signed: Lai Webster MD at 17:44 EDT ,
[2022-07-03] MEDS: Propofol 200 MG/20 ML Vial IV BOLUS (18:58)
--- NOTE | 2022-07-03 19:08 | RAD_ITS ---
STUDY: XR Hip Unilateral with Pelvis when performed; 1 View 07/03/2022 7:10 PM REASON FOR EXAM: Male, 61 years old. reduction of dislocation Pain TECHNIQUE: XR Hip Unilateral with Pelvis when performed; 1 View COMPARISON: Study done earlier today. FINDINGS: There is a non-specific bowel gas pattern. There is a metal sideplate transfixing the left acetabulum. There are cortical screws holding the plate in place. There are degenerative changes of the lumbar spine. Lumbar spinal fixation hardware. Normal bilateral iliac wings, sacroiliac joints and visualized sacrum. Normal visualized bilateral superior and inferior pubic rami. Normal pubic symphysis. Normal ischial tuberosities. Normal visualized right femoral head. Normal right acetabulum. Normal right hip joint. Total left hip arthroplasty. Prosthetic left acetabulum. Normal left hip joint. RAD/HIP, UNI W/ Pelvis 2-3 Views IMPRESSION: Successful reduction Electronically Signed: Lai Webster MD at 19:23 EDT ,
== END 2022-07-03 19:59 | disposition home or self-care (01) ==
PROVIDERS: Emergency Provider Emergency Medicine; Referring Provider Emergency Medicine; Visit Provider Emergency Medicine
DX: S73.005A Unspecified dislocation of left hip, initial encounter (principal); J44.9 Chronic obstructive pulmonary disease, unspecified; X58.XXXA Exposure to other specified factors, initial encounter; Z79.899 Other long term (current) drug therapy; Z79.51 Long term (current) use of inhaled steroids; Z96.642 Presence of left artificial hip joint; F17.210 Nicotine dependence, cigarettes, uncomplicated
CPT/HCPCS: 27256; 73501; 73502; 96374; 99152; 99153; 99285; J7030; A4216

== ENCOUNTER 2022-10-17 09:30 | Outpatient (RCR) | payer OTHER, SELFPAY ==
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
--- NOTE | 2022-07-25 09:50 | HP.PTREVAL_ITS ---
Yoav Trujillo PA-C, It has been my pleasure to treat KOKO GAGE over the last 9 visits for L KACEY revision 06-04-22. Please see the progress note below for an update on the physical therapy plan of care! Subjective: Pt. a few weeks ago had a dislocation of his hip. It was relocated and was advised to see his physician again prior to starting back with PT. Pt. saw his physician who gave the go ahead to start PT again, but to progress slowly. Pt. consents. Pt. arrives today with use of his cane with good gait pattern. Objective/Function: Pt. did well with PT, but we did start slower. I want him to work on stability exercises, light hip strengthening. I talked to him about avoiding compromising positions and limit his activities that involve him on the ground. Pt. consents. He is actually doing pretty well considering. We talked that he now has a higher risk for dislocation and he reports understanding. He is also in the process of getting new AFO that would fit better for his foot drop. Plan Plan: cont. to progress strengthening. Pt. doing well with cane. Look out for L foot clearance. Progress slowly due to recent dislocation of his hip. Balance/Gait/Functional tests - Balance/Special Test Scores Lower Extremity Functional Score: 15 TUG Test Time Seconds: 33.5 Tug Test: >30sec.=impaired mobility Goals Goal 1:: LTG: Pt. to be I with HEP. Goal Time Frame: 4-6 Weeks Goal 2:: LTG: Pt. to have symmetrical strength between B hips. Goal Time Frame: 4-6 Weeks Goal 3:: STG: Pt. to ambulate with SPC with good step length ANTHONY with out increase in L hip pain. Goal Time Frame: 2-4 Weeks Goal 4:: LTG: Pt. to negotiate steps with reciprocal pattern with use of 1 HR without increase in symptoms. Goal Time Frame: 4-6 Weeks Goal 5:: STG: Pt. to be able to get in/out of bed without increase in L hip pain. Goal Time Frame: 2-4 Weeks Goal 6:: LTG: Pt. to complete TUG less than 10sec with good safety. Goal Time Frame: 4-6 Weeks Anticipated Interventions Patient/Client Instruction: Educate patient on: Condition, Plan of Care, Risk Factors, Benefits of Fitness Program For the Purpose of:: To foster healthy habits, To improve decision making, To facilitate caregiver knowledge, To improve self management, To prevent re- injury, To improve ability to perform tasks related to life management Therapeutic Exercise to Include: Strength training, Power training, Balance training, Body mechanics, Postural training, Flexibilty training, Gait and locomotor training, Passive ROM, Active ROM For the Purpose of:: To decrease pain, To increase ROM, To improve nutrient delivery to tissue, To increase oxygenation perfusion, To improve muscle performance and motor function, To improve ability to perform ADL's, To increase tolerance to activity/condition/position, To improve ability of physical actions for home/community/work/leisure, To improve gait and locomotor functions, To improve health of tissue, To decrease soft tissue restriction, To increase flexibility/ROM Manual Therapy Techniques to Include: Mobilization, Soft tissue mobilization For the Purpose of:: To decrease pain, To decrease swelling/inflammation, To increase ROM, To improve nutrient delivery to tissue, To increase oxygenation perfusion, To improve muscle performance and motor function IF ES: Yes Cryotherapy (ice pack, ice massage): Yes For the Purpose of:: To decrease pain, To decrease swelling/inflammation, To increase ROM, To improve nutrient delivery to tissue, To increase oxygenation perfusion, To improve muscle performance and motor function Please do not hesitate to contact me at [phone] by phone or Fax: if you have questions or concerns regarding this new plan of care! Sincerely, Galileo Galloway DPT
--- NOTE | 2022-08-27 09:53 | HP.PTREVAL_ITS ---
Yoav Trujillo PA-C, It has been my pleasure to treat KOKO GAGE over the last 12 visits for L KACEY revision 06-04-22. Please see the progress note below for an update on the physical therapy plan of care! Subjective: Pt. reports he is still having a lot of pain with standing and walking. He has held off most exercises and home activities. He is still walking with his cane, but has a noticeable antalgic pattern. Pt. reports he is sleeping okay, but moving his leg has increased thigh pain. Objective/Function: ROM: L hip: flexion 90deg, abd 45deg, ext 0deg. IR not tested. MMT: L hip: flexion 3-/5 increase pain, abd 3/5 increase pain, ext 3+/5 increase NW. Knee: ext 4/5 NE, flexion 4-/5 increase NW. GAIT: Pt. is able to ambulate with SPC, but has increased pain during L stance phase. Decreased step length bilaterally. STAIRS: step to pattern loading RLE only. TU.3sec with SPC Plan Plan: Cont. with PT. He will likely need more PT due to his limited tolerance to exercise and mobility due to pain. He needs to work on ROM, strengthening and general mobility. Balance/Gait/Functional tests - Balance/Special Test Scores Lower Extremity Functional Score: 15 TUG Test Time Seconds: 33.5 Tug Test: >30sec.=impaired mobility Goals Goal 1:: LTG: Pt. to be I with HEP. Goal Time Frame: 4-6 Weeks Goal Progress: Progressing Goal 2:: LTG: Pt. to have symmetrical strength between B hips. Goal Time Frame: 4-6 Weeks Goal Progress: Not Progressing Goal 3:: STG: Pt. to ambulate with SPC with good step length ANTHONY with out increase in L hip pain. Goal Time Frame: 2-4 Weeks Goal Progress: Progressing Goal 4:: LTG: Pt. to negotiate steps with reciprocal pattern with use of 1 HR without increase in symptoms. Goal Time Frame: 4-6 Weeks Goal Progress: Progressing Goal 5:: STG: Pt. to be able to get in/out of bed without increase in L hip pain. Goal Time Frame: 2-4 Weeks Goal Progress: Progressing Goal 6:: LTG: Pt. to complete TUG less than 10sec with good safety. Goal Time Frame: 4-6 Weeks Goal Progress: Progressing Anticipated Interventions Patient/Client Instruction: Educate patient on: Condition, Plan of Care, Risk Factors, Benefits of Fitness Program For the Purpose of:: To foster healthy habits, To improve decision making, To facilitate caregiver knowledge, To improve self management, To prevent re- injury, To improve ability to perform tasks related to life management Therapeutic Exercise to Include: Strength training, Power training, Balance training, Body mechanics, Postural training, Flexibilty training, Gait and locomotor training, Passive ROM, Active ROM For the Purpose of:: To decrease pain, To increase ROM, To improve nutrient delivery to tissue, To increase oxygenation perfusion, To improve muscle performance and motor function, To improve ability to perform ADL's, To increase tolerance to activity/condition/position, To improve ability of physical actions for home/community/work/leisure, To improve gait and locomotor functions, To improve health of tissue, To decrease soft tissue restriction, To increase flexibility/ROM Manual Therapy Techniques to Include: Mobilization, Soft tissue mobilization For the Purpose of:: To decrease pain, To decrease swelling/inflammation, To increase ROM, To improve nutrient delivery to tissue, To increase oxygenation perfusion, To improve muscle performance and motor function IF ES: Yes Cryotherapy (ice pack, ice massage): Yes For the Purpose of:: To decrease pain, To decrease swelling/inflammation, To increase ROM, To improve nutrient delivery to tissue, To increase oxygenation perfusion, To improve muscle performance and motor function Please do not hesitate to contact me at [phone] by phone or if you have questions or concerns regarding this new plan of care! Sincerely, Galileo Galloway DPT
--- NOTE | 2022-09-06 10:31 | HP.PTREVAL_ITS ---
Yoav Trujillo PA-C, It has been my pleasure to treat KOKO GAGE over the last 5 visits for L KACEY revision 06-04-22. Please see the progress note below for an update on the physical therapy plan of care! Subjective: Pt has been behaving himself. He is mowing on a zero turn. said he needs to go see his back surgeon again. He is still struggling with the pain in his L hip and the burning sensations. His balance is off quite a bit. He is starting to use his L leg more to step up the stairs and is getting better. Objective/Function: TUG 12:02. Gait: walks with a straight cane with decrease stance time on the L LE. LE MMT. R hip flex 16.1, knee ext 18.8, knee flex 15.7, hip and in supine 19.1. L hip flex 5.6, 14.8, 12, 13.4. Stairs: Up and down recip with 2 handrails with weakness present on the L LE and decreased ability to DF the foot on the L (caught L foot on the step) ascending the steps Plan Plan: Cont. with PT. He will need more PT due to his limited tolerance to exercise, strength, and decreased mobility due to pain. He needs to work on ROM, strengthening and general mobility. Balance/Gait/Functional tests - Balance/Special Test Scores Lower Extremity Functional Score: 35 TUG Test Time Seconds: 33.5 Tug Test: >30sec.=impaired mobility Goals Goal 1:: LTG: Pt. to be I with HEP. Goal Time Frame: 4-6 Weeks Goal Progress: Progressing Goal 2:: LTG: Pt. to have symmetrical strength between B hips. Goal Time Frame: 4-6 Weeks Goal Progress: Not Progressing Goal 3:: STG: Pt. to ambulate with SPC with good step length ANTHONY with out increase in L hip pain. Goal Time Frame: 2-4 Weeks Goal Progress: Progressing Goal 4:: LTG: Pt. to negotiate steps with reciprocal pattern with use of 1 HR without increase in symptoms. Goal Time Frame: 4-6 Weeks Goal Progress: Progressing Goal 5:: STG: Pt. to be able to get in/out of bed without increase in L hip pain. Goal Time Frame: 2-4 Weeks Goal Progress: Goal Met Goal 6:: LTG: Pt. to complete TUG less than 10sec with good safety. Goal Time Frame: 4-6 Weeks Goal Progress: Progressing Anticipated Interventions Patient/Client Instruction: Educate patient on: Condition, Plan of Care, Risk Factors, Benefits of Fitness Program For the Purpose of:: To foster healthy habits, To improve decision making, To facilitate caregiver knowledge, To improve self management, To prevent re- injury, To improve ability to perform tasks related to life management Therapeutic Exercise to Include: Strength training, Power training, Balance training, Body mechanics, Postural training, Flexibilty training, Gait and locomotor training, Passive ROM, Active ROM For the Purpose of:: To decrease pain, To increase ROM, To improve nutrient delivery to tissue, To increase oxygenation perfusion, To improve muscle performance and motor function, To improve ability to perform ADL's, To increase tolerance to activity/condition/position, To improve ability of physical actions for home/community/work/leisure, To improve gait and locomotor functions, To improve health of tissue, To decrease soft tissue restriction, To increase flexibility/ROM Manual Therapy Techniques to Include: Mobilization, Soft tissue mobilization For the Purpose of:: To decrease pain, To decrease swelling/inflammation, To increase ROM, To improve nutrient delivery to tissue, To increase oxygenation perfusion, To improve muscle performance and motor function IF ES: Yes Cryotherapy (ice pack, ice massage): Yes For the Purpose of:: To decrease pain, To decrease swelling/inflammation, To increase ROM, To improve nutrient delivery to tissue, To increase oxygenation perfusion, To improve muscle performance and motor function Please do not hesitate to contact me at [phone] by phone or if you have questions or concerns regarding this new plan of care! Sincerely, Abigail Estevez, MPT
== END 2022-10-17 19:00 | disposition home or self-care (01) ==
LOC: PT 09:30
PROVIDERS: Referring Provider Physician Assistant Surgical; Visit Provider Physician Assistant Surgical
DX: Z96.642 Presence of left artificial hip joint; T84.84XD Pain due to internal orthopedic prosthetic devices, implants and grafts, subsequent encounter; Z47.1 Aftercare following joint replacement surgery
CPT/HCPCS: 97110; 97161; 97164; 97530

== ENCOUNTER 2022-12-27 17:50 | Emergency (ER) | payer MEDICARE, SELFPAY ==
[2022-12-27 17:51] VITALS: BP 165/110; PULSE 81; RESP 16; TEMP 36.8; O2SAT 95; BMI 31.3
--- NOTE | 2022-12-27 18:19 | EDS_ITS ---
HPI History of Present Illness Chief Complaint: Lower Extremity Injury Detail of Chief Complaint: Left hip dislocation Informant: patient Narrative Narrative: Patient presents to the emergency department stating that he thinks he dislocated his left hip. Patient states he was in bed and try to pull himself up and as he did that he felt a pop in his left hip and it dislocated. Patient had the hip replaced in May by Dr. Su. Patient has had 1 prior dislocation like this. PFSH PFS Medical History (Updated 12/27/22 @ 19:[address] Zoran Howard DO) COPD (chronic obstructive pulmonary disease) History of revision of total replacement of left hip joint Home Medications albuterol sulfate 90 mcg/actuation aerosol inhaler (Ventolin HFA) 1 - 2 puff inhalation Q6H PRN PRN Wheezing 04/15/16 [History Last Taken Unknown] budesonide-formoterol HFA 160 mcg-4.5 mcg/actuation aerosol inhaler (Symbicort) 1 puff inhalation DAILY 04/15/16 [History Last Taken Unknown] polyethylene glycol 3350 17 gram oral powder packet 17 g PO PRN PRN Constipation 04/15/16 [History Last Taken Unknown] sennosides 8.6 mg-docusate sodium 50 mg tablet 2 tab PO BID 04/15/16 [History Last Taken 04/15/16 12:45] omeprazole 40 mg PO/SL DAILY 02/13/21 [History Last Taken Unknown] Allergy/AdvReac Type Severity Reaction Status Date / Time guaifenesin AdvReac Upset Verified 12/27/22 17:54 Stomach Surgical History (Updated 07/03/22 @ 16:[address] Lamont Silva DO) History of total left hip replacement S/P ORIF (open reduction internal fixation) fracture Social History Smoking Status: Current every day smoker tobacco type: cigarettes substance use type: does not use ROS ROS ED Review of Systems ROS Unobtainable: other Constitutional Constitutional ED: Reports lethargy; Denies chills, fever(s), sweats or weight loss Eyes Eyes: Denies blurry vision, change in vision or diplopia ENT ENT ED: Denies rhinorrhea or sore throat Cardiovascular Cardiovascular: Denies chest pain, orthopnea or racing heartbeat Respiratory/Chest Respiratory/Chest: Denies cough, dyspnea, dyspnea on exertion, orthopnea or sputum Gastrointestinal Gastrointestinal: Denies abdominal pain, diarrhea, nausea or vomiting Genitourinary Genitourinary ED: Denies dysuria, hematuria or urinary frequency Musculoskeletal Musculoskeletal: Reports other Details: Left hip pain/dislocation ; Denies arthralgias, back pain, myalgias or neck pain Integumentary Denies abscess, Abrasions or rash Neurologic Neurologic: Denies headache(s) or weakness Psychiatric Psychiatric: Denies anxiety, depression or suicidal thoughts Endocrine Endocrinology: Denies polydipsia, polyphagia or polyuria Hematologic/Lymphatic Hematologic/Lymphatic: Denies easy bleeding, easy bruising or lymphadenopathy Allergic/Immunologic Allergic/Immunologic ED: Denies mouth swelling, tongue swelling or urticaria EXAM Physical Exam Const Vital Signs: 12/27/22 17:51 12/27/22 18:50 12/27/22 18:59 Temperature 98.2 F Temperature Source Temporal Pulse Rate 81 85 Pulse Rate [1 (Initial Baseline)] 84 Pulse Rate [2] 87 Pulse Rate [3] 90 Respiratory Rate 16 15 Respiratory Rate [1 (Initial Baseline)] 15 Respiratory Rate [2] 18 Respiratory Rate [3] 18 Blood Pressure 165/110 H 131/81 H Blood Pressure [1 (Initial Baseline)] 122/97 H Blood Pressure Mean 128 Pulse Ox 95 96 Oxygen Delivery Method Room Air Nasal Cannula Oxygen Delivery Method [1 (Initial Baseline)] Nasal Cannula Oxygen Delivery Method [2] Nasal Cannula Oxygen Delivery Method [3] Nasal Cannula Oxygen Flow Rate (L/min) 2 Oxygen Flow Rate (L/min) [1 (Initial Baseline)] 3 Oxygen Flow Rate (L/min) [2] 3 12/27/22 19:10 12/27/22 19:15 12/27/22 19:20 Temperature Temperature Source Pulse Rate Pulse Rate [1 (Initial Baseline)] Pulse Rate [2] Pulse Rate [3] Respiratory Rate Respiratory Rate [1 (Initial Baseline)] Respiratory Rate [2] Respiratory Rate [3] Blood Pressure Blood Pressure [1 (Initial Baseline)] Blood Pressure Mean Pulse Ox Oxygen Delivery Method Room Air Room Air Room Air Oxygen Delivery Method [1 (Initial Baseline)] Oxygen Delivery Method [2] Oxygen Delivery Method [3] Oxygen Flow Rate (L/min) Oxygen Flow Rate (L/min) [1 (Initial Baseline)] Oxygen Flow Rate (L/min) [2] Positive well nourished and well developed General Appearance ED: well developed and NAD HEENT Reports TM's clear and moist mucous membranes normocephalic and atraumatic; Negative for trauma or tenderness Tympanic Membrane ED: Yes TM's clear Eyes PERRL and EOMs intact bilaterally General Eye ED: Negative for pale conjunctiva or scleral icterus Neck no lymphadenopathy, supple and no JVD General: Negative for tenderness Chest Wall inspection of chest normal and palpation of chest normal Chest: Negative for tenderness Resp normal respiratory effort and clear to auscultation bilaterally Effort and Inspection: Negative for respiratory distress or pain with movement Auscultation: Negative for rhonchi, wheezes or diminished lung sounds Cardio regular rate, regular rhythm, S1 normal heart sound, S2 normal heart sound and no murmurs Peripheral Pulses: pulses 2+ throughout GI normal to inspection, nondistended, normoactive bowel sounds, soft to palpation, non-tender, non-distended and no masses Back/Spine no CVA tenderness and no thoracic nor lumbar tenderness Extremity Extremity Narrative: Left hip with fullness over the lateral aspect and tenderness to palpation. Extremity is shortened and internally rotated. Neurovascular intact distally. No broken skin. General Extremety ED: Negative for edema General Extremity: Negative for edema Neuro oriented x3, CN's II-XII intact bilaterally, no sensory deficits noted and gait normal Sensorium / Orientation: awake, alert, oriented to person, oriented to place and oriented to time Motor Exam: strength 5/5 throughout and strength abnormal Psych mental status grossly normal Skin no rashes or lesions noted and no wounds MDM MDM MDM Narrative Medical decision making narrative: Patient with suspected hip dislocation. An IV line will be established. He will be medicated with morphine and Zofran. X-rays will be obtained. Patient will be consented for procedural sedation to reduce the hip. X-rays initially did show a superior posterior dislocation of the left hip on my interpretation. I did not see any evidence of periprosthesis fracture. Patient was consented for procedural sedation. Patient was given propofol total of 120 mg IV. Good sedation obtained. I was able to using internal rotation of the hip in traction reduce the hip with some effort. Postreduction x-rays show good reduction on my interpretation. Patient was placed in a knee immobilizer. Case will be discussed with orthopedics for follow-up. Radiography Diagnostic Testing: Clinical Impression(s) from Imaging Studies Hip/Pelvis X-Ray 12/27/22 18:20 IMPRESSION: Left hip dislocation. Electronically Signed: Dunia Benjamin MD at 19:29 EDT , Hip/Pelvis X-Ray 12/27/22 19:05 IMPRESSION: Status post reduction of left hip prosthesis dislocation Electronically Signed: Jose Tejeda MD at 19:44 EDT , 1 view x-rays of left hip obtained initially showed posterior superior dislocation of the left hip. Postreduction x-rays of the left hip 2 views obtained showed good reduction on my interpretation. Procedures Procedural Sedation 1 (Initial Baseline): Consent Signed: Yes Any Problems With Anesthesia: No You/Your family experience fever (hyperthermia) w/anesthesia: No Sedation medication: Propofol Dose: 120 Maliampati Score: Class II ASA Classification: I Discharge Plan Triage Chief Complaint: Lower Extremity Injury ED Provider: Zoran Howard Dx/Rx/DC Orders Clinical Impression: Hip dislocation, left Instructions: ED Hip Replace Dislocation Reduc Prescriptions: No Action polyethylene glycol 3350 17 GM powder in packet 17 g PO PRN PRN (Reason: Constipation) sennosides-docusate sodium 1 EACH tablet 2 tab PO BID albuterol sulfate [Ventolin HFA] 1 INHALER inhaler 1 - 2 puff inhalation Q6H PRN PRN (Reason: Wheezing) budesonide-formoterol [Symbicort] 1 INHALER inhaler 1 puff inhalation DAILY omeprazole 40 mg PO/SL DAILY [facility] Provider[facility] Referrals: Martin Su MD [Med Staff - Active Staff] - 3-5 Days [facility] [Primary Care Provider] - Disposition Disposition: Home, Self Care Discharge Date/Time: 12/27/22 19:46
--- NOTE | 2022-12-27 18:20 | RAD_ITS ---
INDICATION: dislocation of left hip prosthesis EXAMINATION/TECHNIQUE: X-RAY - XR Hip Unilateral with Pelvis when performed; 2-3 Views COMPARISON: FINDINGS: Prior total hip arthroplasty. Complete superior dislocation of the left femur relative to the acetabular prosthesis. No demonstrated fracture. RAD/HIP, UNI W/ Pelvis 2-3 Views IMPRESSION: Left hip dislocation. Electronically Signed: Dunia Benjamin MD at 19:29 EDT Reading Location ID and State: [id number] / Tel , Service support ,
[2022-12-27] MEDS: Ondansetron 4 MG/2 ML Vial IV (18:39)
[2022-12-27] MEDS: Morphine 4 MG/ML Syringe IV (18:39)
[2022-12-27 18:50] VITALS: BP 131/81; PULSE 85; RESP 15; O2SAT 96
[2022-12-27 18:59] VITALS: BP 122/97; PULSE 84; PULSE 87; PULSE 90; RESP 15; RESP 18; O2SAT 93; O2SAT 99
[2022-12-27] MEDS: Propofol 200 MG/20 ML Vial IV BOLUS (19:00)
--- NOTE | 2022-12-27 19:05 | RAD_ITS ---
STUDY: X-RAY - PELVIS AND LEFT HIP REASON FOR EXAM: Male, 62 years old. post reduction TECHNIQUE: 2 views of the pelvis and hip. COMPARISON: December 27, 2022 6:22 PM FINDINGS: Previously noted left hip prosthesis dislocation has been reduced and restored to normal anatomic configuration . RAD/HIP, UNI W/ Pelvis 2-3 Views IMPRESSION: Status post reduction of left hip prosthesis dislocation Electronically Signed: Jose Tejeda MD at 19:44 EDT ,
[2022-12-27 19:10] VITALS: BP 124/76; O2SAT 99
[2022-12-27 19:15] VITALS: BP 114/79; O2SAT 98
[2022-12-27 19:20] VITALS: BP 131/85; O2SAT 100
== END 2022-12-27 19:46 | disposition home or self-care (01) ==
PROVIDERS: Emergency Provider Emergency Medicine; Visit Provider Emergency Medicine
DX: S73.005A Unspecified dislocation of left hip, initial encounter (principal); J44.9 Chronic obstructive pulmonary disease, unspecified; F17.210 Nicotine dependence, cigarettes, uncomplicated; Z79.899 Other long term (current) drug therapy; Z79.51 Long term (current) use of inhaled steroids; Z96.642 Presence of left artificial hip joint; X50.9XXA Other and unspecified overexertion or strenuous movements or postures, initial encounter; Y92.89 Other specified places as the place of occurrence of the external cause
CPT/HCPCS: 27256; 73502; 96374; 96375; 99284; J7030; J2405

== ENCOUNTER 2023-03-03 13:09 | Emergency (ER) | payer OTHER, SELFPAY ==
[2023-03-03] VITALS (7 sets, daily range): BP systolic 118–145; BP diastolic 86–111; PULSE 65–86; RESP 14–28; TEMP 36.2–36.6; O2SAT 96–100; BMI 33.1
[2023-03-03] MEDS: Ondansetron 4 MG/2 ML Vial IV (13:19)
[2023-03-03] MEDS: HYDROmorphone 1 MG/ML Syringe IV (13:20)
--- NOTE | 2023-03-03 13:26 | ED.VIS.LOWEX ---
HPI History of Present Illness Chief Complaint: Lower Extremity Injury Informant: patient Narrative Narrative: 62-year-old male presenting to the emergency room with left hip dislocation. Patient sees Dr. Su and is scheduled for a revision March 25. His last dislocation was in December. He states today he went to sit down and felt it dislocate. He has been drinking coffee most of the morning his last solid p.o. was at 0600 and was a bagel. He denies any prior problems with anesthesia. [facility] Medical History COPD (chronic obstructive pulmonary disease) History of revision of total replacement of left hip joint Home Medications albuterol sulfate 90 mcg/actuation aerosol inhaler (Ventolin HFA) 1 - 2 puff inhalation Q6H PRN PRN Wheezing 04/15/16 [History Last Taken Unknown] budesonide-formoterol HFA 160 mcg-4.5 mcg/actuation aerosol inhaler (Symbicort) 1 puff inhalation DAILY 04/15/16 [History Last Taken Unknown] polyethylene glycol 3350 17 gram oral powder packet 17 g PO PRN PRN Constipation 04/15/16 [History Last Taken Unknown] sennosides 8.6 mg-docusate sodium 50 mg tablet 2 tab PO BID 04/15/16 [History Last Taken 04/15/16 12:45] omeprazole 40 mg PO/SL DAILY 02/13/21 [History Last Taken Unknown] hydrocodone-acetaminophen 5-325mg 5mg-325mg 1 tab PO Q6H PRN PRN Pain 3 days #12 TABLETS 03/03/23 [Rx Last Taken Unknown] Allergy/AdvReac Type Severity Reaction Status Date / Time guaifenesin AdvReac Upset Verified 12/27/22 17:54 Stomach Surgical History History of total left hip replacement S/P ORIF (open reduction internal fixation) fracture Social History Smoking Status: Current every day smoker tobacco type: cigarettes substance use type: does not use ROS ROS ED Constitutional Constitutional ED: Denies chills or weight loss Eyes Eyes: Denies change in vision or diplopia ENT ENT ED: Denies ear pain, rhinorrhea or sore throat Cardiovascular Cardiovascular: Denies chest pain, orthopnea, palpitations or racing heartbeat Respiratory/Chest Respiratory/Chest: Denies cough, dyspnea or orthopnea Gastrointestinal Gastrointestinal: Denies abdominal pain, diarrhea, nausea or vomiting Genitourinary Genitourinary ED: Denies dysuria, hematuria or urinary frequency Musculoskeletal Musculoskeletal: Reports other Details: Left hip dislocation ; Denies arthralgias or myalgias Integumentary Denies abscess or rash Neurologic Neurologic: Denies headache(s) or weakness Psychiatric Psychiatric: Denies anxiety, depression, suicidal ideation or suicidal thoughts Endocrine Endocrinology: Denies polydipsia, polyphagia or polyuria Allergic/Immunologic Allergic/Immunologic ED: Denies mouth swelling, tongue swelling or urticaria EXAM Physical Exam Const Vital Signs: 03/03/23 13:10 03/03/23 13:32 03/03/23 14:07 Temperature 97.2 F L 97.8 F Temperature Source Temporal Pulse Rate 83 70 Pulse Rate [1 (Initial Baseline)] 73 Pulse Rate [2] 70 Pulse Rate [3] 79 Pulse Rate [4] 78 Pulse Rate [5] 72 Pulse Rate [6] 65 Pulse Rate [7] 65 Pulse Rate [8] 75 Respiratory Rate 14 16 Respiratory Rate [1 (Initial Baseline)] 16 Respiratory Rate [2] 16 Respiratory Rate [3] 28 H Respiratory Rate [4] 20 H Respiratory Rate [5] 20 H Respiratory Rate [6] 20 H Respiratory Rate [7] 24 H Respiratory Rate [8] 26 H Blood Pressure 136/95 H 118/99 H Blood Pressure [1 (Initial Baseline)] 135/95 H Blood Pressure [2] 135/95 H Blood Pressure [3] 126/106 H Blood Pressure [4] 142/111 H Blood Pressure [5] 145/111 H Blood Pressure [6] 145/111 H Blood Pressure [7] 136/90 H Blood Pressure [8] 136/90 H Blood Pressure Mean 108 Pulse Ox 98 99 Oxygen Delivery Method Room Air Nasal Cannula Oxygen Delivery Method [1 (Initial Baseline)] Nasal Cannula Oxygen Delivery Method [2] Nasal Cannula Oxygen Delivery Method [3] Nasal Cannula Oxygen Delivery Method [4] Nasal Cannula Oxygen Delivery Method [5] Nasal Cannula Oxygen Delivery Method [6] Nasal Cannula Oxygen Delivery Method [7] Nasal Cannula Oxygen Delivery Method [8] Nasal Cannula Oxygen Flow Rate (L/min) [1 (Initial Baseline)] 5 Oxygen Flow Rate (L/min) [2] 5 Oxygen Flow Rate (L/min) [3] 6 Oxygen Flow Rate (L/min) [4] 6 Oxygen Flow Rate (L/min) [5] 6 Oxygen Flow Rate (L/min) [6] 6 Oxygen Flow Rate (L/min) [7] 6 Positive well nourished and well developed General Appearance ED: well developed HEENT Reports normocephalic, head/scalp atraumatic and moist mucous membranes Eyes PERRL and EOMs intact bilaterally Neck no lymphadenopathy, supple and no JVD Resp normal respiratory effort and clear to auscultation bilaterally Cardio regular rate, regular rhythm and no murmurs GI normal to inspection, nondistended, normoactive bowel sounds and non-tender Palpation: soft Back/Spine no CVA tenderness and normal ROM Extremity Extremity Narrative: Tender to palpation left hip. He is laying mostly on his right side with his left knee bent. Neurovascular intact distal. General Extremety ED: Negative for edema General Extremity: Negative for edema Neuro oriented x3 and CN's II-XII intact bilaterally Sensorium / Orientation: alert Motor Exam: strength 5/5 throughout Psych mental status grossly normal Mood & Affect: Negative for depressed or tearful Skin no rashes or lesions noted and no wounds MDM MDM MDM Narrative Medical decision making narrative: Patient received Dilaudid and Zofran. My independent interpretation of the plain films of the left hip and pelvis is an acute dislocation of prosthetic hip. No fracture identified. Patient provided written informed consent for procedural sedation for closed reduction of the hip. Patient was assessed. Sedation and received etomidate. While this helped the patient relax we did not get full muscle relaxation I was not able to confidently reduce the hip. Therefore propofol was given at 1 mg/kg (100 mg). This provided adequate muscle relaxation and the hip was reduced using some internal rotation and hip flexion. My interpretation of the postreduction films is adequate reduction of dislocation. Patient had a brief episode of hypoventilation. He did not have any bradycardia hypotension or significant hypoxia. Patient was allowed to recover. He is now in a knee immobilizer and will be discharged to follow-up with orthopedics Radiography Diagnostic Testing: Clinical Impression(s) from Imaging Studies Hip/Pelvis X-Ray 03/03/23 13:48 IMPRESSION: Posterior-superior dislocation of the left prosthetic hip joint. Electronically Signed: Destin Melvin MD at 14:03 EST , Hip X-Ray 03/03/23 14:25 IMPRESSION: Satisfactory reduction of the prosthetic left hip joint. Electronically Signed: Destin Melvin MD at 14:46 EST , Procedures Procedural Sedation 1 (Initial Baseline): Consent Signed: Yes Any Problems With Anesthesia: No Sedation medication: Etomidate Dose: 20 Total Moderate Sedation Units: 17 Maliampati Score: Class I ASA Classification: I Discharge Plan Triage Chief Complaint: Lower Extremity Injury ED Provider: Luan Botello Dx/Rx/DC Orders Clinical Impression: Acute pain of left hip, Dislocation of left hip Instructions: ED Hip Replace Dislocation Reduc Prescriptions: New hydrocodone-acetaminophen [hydrocodone-acetaminophen] 5-325 mg tablet 1 tab PO Q6H PRN PRN (Reason: Pain) 3 Days Qty: 12 0RF No Action polyethylene glycol 3350 17 GM powder in packet 17 g PO PRN PRN (Reason: Constipation) sennosides-docusate sodium 1 EACH tablet 2 tab PO BID albuterol sulfate [Ventolin HFA] 1 INHALER inhaler 1 - 2 puff inhalation Q6H PRN PRN (Reason: Wheezing) budesonide-formoterol [Symbicort] 1 INHALER inhaler 1 puff inhalation DAILY omeprazole 40 mg PO/SL DAILY [facility] Referrals: Martin Su MD [Med Staff - Active Staff] - [facility] soon as possible [facility] [Primary [facility]] - Disposition Disposition: Home, Self Care
--- NOTE | 2023-03-03 13:48 | RAD_ITS ---
STUDY: X-RAY - PELVIS AND LEFT HIP REASON FOR EXAM: Male, 62 years old. Dislocation TECHNIQUE: 2 views of the pelvis and hip. COMPARISON: Comparison is made with prior study of December 27, 2022. FINDINGS: There is evidence of a superior posterior dislocation of the prosthetic left hip joint. Prior ORIF of the left acetabulum. RAD/HIP, UNI W/ Pelvis 2-3 Views IMPRESSION: Posterior-superior dislocation of the left prosthetic hip joint. Electronically Signed: Destin Melvin MD at 14:03 EST ,
--- NOTE | 2023-03-03 14:25 | RAD_ITS ---
STUDY: X-RAY - PELVIS AND LEFT HIP REASON FOR EXAM: Male, 62 years old. Postreduction TECHNIQUE: 2 views of the pelvis and hip. COMPARISON: Comparison is made with prior study of earlier in the day. FINDINGS: Satisfactory reduction of the prosthetic left hip joint. RAD/Hip Min 2 Views (Portable) IMPRESSION: Satisfactory reduction of the prosthetic left hip joint. Electronically Signed: Destin Melvin MD at 14:46 EST ,
[2023-03-03] MEDS: Etomidate 20 MG/10 ML Vial IV (14:35)
== END 2023-03-03 15:32 | disposition home or self-care (01) ==
PROVIDERS: Emergency Provider Emergency Medicine; Referring Provider Emergency Medicine; Visit Provider Emergency Medicine
DX: S73.005A Unspecified dislocation of left hip, initial encounter (principal); J44.9 Chronic obstructive pulmonary disease, unspecified; F17.210 Nicotine dependence, cigarettes, uncomplicated; Z96.642 Presence of left artificial hip joint; Z79.51 Long term (current) use of inhaled steroids; M25.552 Pain in left hip; X58.XXXA Exposure to other specified factors, initial encounter
CPT/HCPCS: 27265; 73502; 96374; 96375; 99152; 99285; J7030; A4216; J2405

== ENCOUNTER 2023-06-06 09:07 | Emergency (ER) | payer OTHER, SELFPAY ==
[2023-06-06 09:07] VITALS: BP 132/85; PULSE 85; RESP 18; TEMP 35.3; O2SAT 99; BMI 31.8
--- NOTE | 2023-06-06 09:10 | EDS_ITS ---
HPI History of Present Illness Chief Complaint: Fall Informant: patient Onset/Context/Timing Onset: Days (2) Mechanism/Context: Fall Quality of Pain: Sharp Location: Right lower ribs Worsened by: Breathing Relieved by: Rest Associated Symptoms Associated Symptoms: Negative for Parasthesias, Weakness, Loss of function, Inability to ambulate, Loss of consciousness or Amnesia Narrative Narrative: Patient presents with right rib injury that occurred 2 days ago. Patient states he fell and landed on a plastic box that he was carrying. Patient states that his pain is mainly over the right lower ribs. Patient describes the pain as sharp. Patient states it is worse with deep breathing. Patient states it is better with rest. Patient denies any head injury or loss of consciousness. Patient denies any other injuries. Patient does admit to a mild cough but denies any shortness of breath. [facility] Medical History COPD (chronic obstructive pulmonary disease) History of revision of total replacement of left hip joint Home Medications albuterol sulfate 90 mcg/actuation aerosol inhaler (Ventolin HFA) 1 - 2 puff inhalation Q6H PRN PRN Wheezing 04/15/16 [History Last Taken Unknown] budesonide-formoterol HFA 160 mcg-4.5 mcg/actuation aerosol inhaler (Symbicort) 1 puff inhalation DAILY 04/15/16 [History Last Taken Unknown] polyethylene glycol 3350 17 gram oral powder packet 17 g PO PRN PRN Constipation 04/15/16 [History Last Taken Unknown] sennosides 8.6 mg-docusate sodium 50 mg tablet 2 tab PO BID 04/15/16 [History Last Taken 04/15/16 12:45] omeprazole 40 mg PO/SL DAILY 02/13/21 [History Last Taken Unknown] hydrocodone-acetaminophen 5-325mg 5mg-325mg 1 tab PO Q6H PRN PRN Pain 3 days #12 TABLETS 03/03/23 [Rx Last Taken Unknown] Allergy/AdvReac Type Severity Reaction Status Date / Time guaifenesin AdvReac Upset Verified 06/06/23 09:09 Stomach Surgical History History of total left hip replacement S/P ORIF (open reduction internal fixation) fracture Social History Smoking Status: Current every day smoker tobacco type: cigarettes substance use type: does not use ROS ROS ED Constitutional Constitutional ED: Denies chills or fever(s) Eyes Eyes: Denies blurry vision or change in vision ENT ENT ED: Denies rhinorrhea or sore throat Cardiovascular Cardiovascular: Reports chest pain; Denies palpitations Respiratory/Chest Respiratory/Chest: Reports cough; Denies dyspnea Gastrointestinal Gastrointestinal: Denies nausea or vomiting Genitourinary Genitourinary ED: Denies dysuria or hematuria Musculoskeletal Musculoskeletal: Denies back pain or neck pain Integumentary Denies abscess or rash Neurologic Neurologic: Denies headache(s) or weakness Allergic/Immunologic Allergic/Immunologic ED: Denies mouth swelling or urticaria EXAM Physical Exam Const Vital Signs: 06/06/23 09:07 Temperature 95.5 F L Temperature Source Temporal Pulse Rate 85 Respiratory Rate 18 Blood Pressure 132/85 H Blood Pressure Mean 100 Pulse Ox 99 Oxygen Delivery Method Room Air Positive well nourished and well developed General Appearance ED: well developed and NAD HEENT atraumatic Chest Wall Chest Narrative: There is tenderness over the right lower chest wall. There is no edema or ecchymosis. There is no bony crepitance or step-off. There is no subcutaneous emphysema noted. Resp normal respiratory effort and clear to auscultation bilaterally Cardio regular rhythm Rate: regular rate GI non-tender and non-distended Palpation: soft Neuro oriented x3, CN's II-XII intact bilaterally, moves all extremities, no focal motor deficits and no sensory deficits noted Mickey Coma Scale: document GCS findings Spontaneous Obeys Commands Oriented 15 Sensorium / Orientation: alert Motor Exam: strength 5/5 throughout Psych mental status grossly normal and thought process normal MDM MDM MDM Narrative Medical decision making narrative: Differential diagnosis includes rib fracture, pneumothorax, and chest wall contusion. X-rays of the right ribs will be obtained to assess for pneumothorax and rib fracture. Radiography Diagnostic Testing: Clinical Impression(s) from Imaging Studies Ribs w/Chest X-Ray 06/06/23 09:30 IMPRESSION: RIBS: Normal x-ray examination of the ribs. CHEST: Findings suggestive of mild linear bibasilar atelectasis. Electronically Signed: Destin Melvin MD at 10:36 EDT , X-rays of the right ribs were obtained. There are 5 views. On my independent interpretation, there is no acute fracture. There is no pneumothorax. There is no acute abnormality noted. There is mild bibasilar atelectasis. Radiologist also interpreted the x-rays and agrees. Treatment and Re-Evaluation Narrative: Patient was advised of his findings. Patient was instructed use ice to the area. Patient was instructed to take 10-15 deep breaths every hour while awake to prevent atelectasis and pneumonia. Patient was instructed to take Tylenol or ibuprofen as needed for pain. Patient was instructed to follow-up with his primary care physician in 5 to 7 days. Patient understood and was agreeable with the plan. All questions were answered. Discharge Plan Triage Chief Complaint: Fall ED Provider: Lamont Silva Dx/Rx/DC Orders Clinical Impression: Chest wall contusion, Fall Instructions: ED Bruise, Rib Prescriptions: No Action polyethylene glycol 3350 17 GM powder in packet 17 g PO PRN PRN (Reason: Constipation) sennosides-docusate sodium 1 EACH tablet 2 tab PO BID albuterol sulfate [Ventolin HFA] 1 INHALER inhaler 1 - 2 puff inhalation Q6H PRN PRN (Reason: Wheezing) budesonide-formoterol [Symbicort] 1 INHALER inhaler 1 puff inhalation DAILY omeprazole 40 mg PO/SL DAILY hydrocodone-acetaminophen [hydrocodone-acetaminophen] 5-325 mg tablet 1 tab PO Q6H PRN PRN (Reason: Pain) 3 Days Qty: 12 0RF [facility]Primary [facility] Provider[facility] - 5-7 Days Disposition Disposition: Home, Self Care
--- NOTE | 2023-06-06 09:30 | RAD_ITS ---
STUDY: X-RAY - UNILATERAL RIBS ( RIGHT ) WITH CHEST REASON FOR EXAM: Male, 62 years old. Right-sided rib pain following a fall. TECHNIQUE - RIBS: 4 view(s) of the ribs. TECHNIQUE - CHEST: Single PA view of the chest. COMPARISON: None. FINDINGS - RIBS: Normal visualized ribs without a demonstrated fracture. FINDINGS - CHEST: Mild degree of linear markings at the lung bases suggestive of bibasilar linear atelectasis. There is no demonstrated pleural abnormality. Normal size heart. Normal mediastinum and adelaida. Normal visualized pulmonary arteries. Normal visualized aortic arch and descending thoracic aorta. Normal visualized thoracic spine. Normal visualized ribs, clavicles, and shoulders. There is no demonstrated abnormality of the visualized soft tissue structures of the upper abdomen. RAD/Ribs Uni Min 3V w/PA Chest IMPRESSION: RIBS: Normal x-ray examination of the ribs. CHEST: Findings suggestive of mild linear bibasilar atelectasis. Electronically Signed: Destin Melvin MD at 10:36 EDT ,
--- OUTSIDE RECORDS SUMMARY | 2023-06-06 10:33 | XMS RPT_ITS | CCD ---
Author Name Unknown Address [address] [place] [address] Organization [facility] Care Team Providers Care Stacker Attendant Name Role Phone KATHLEEN BURGER Unavailable Unavailable [facility] Unavailable Unavailable KATHLEEN BURGER Unavailable Unavailable [facility] Unavailable Unavailable [facility] Unavailable Unavailable KATHLEEN BURGER MARIA ISABEL Unavailable Unavai lable KATHLEEN BURGER Unavailable Unavailable [facility] Unavailable Unavailable ANDERSON KOEHLER Admitting Unavailable ANDERSON KOEHLER Attending Unavailable ANDERSON KOEHLER Primary Care Unavailable PHYSICIAN, NONE Primary Care Physician Unavailab juanita LANTIGUA LINING STRAP CLOSER-CLIENT EXPERIENCE ADMINISTRATOR, [facility] Primary Care Physician ( [phone] RHINA MUNIZ, [facility] Primary Care Unavailrhonda REYES MD, DR ADIA Harley Attending Unavailab juanita MUNIZ, [facility] Primary Care Unavaila lizeth MUNIZ, SHOSHANA Nunez Consulting Layo REYES MD, DR ADIA Harley Attending Jonathan Grace MD, DR ADIA Harley Admitting Unavailab Ackerman, [facility] Primary Care Unavaila lizeth MUNIZ, SHOSHANA Nunez Consulting Layo REYES MD, DR ADIA Harley Attending Jonathan Grace MD, DR ADIA Harley Admitting Unavailab le Allergies Allergy Classification Reported Allergen(s) Allergy Type Date of Onset Reaction(s) Facility (4 sources) guaiFENesin; Translations: [guaifenesin] Drug Allergy Nausea and vomiting [facility] Medications Current Medications Medication Drug Class(es) Dates Sig (Normalized) Sig (Original) acetaminophen 500 mg oral tablet (1 source) Start: 06-05-2022 End: 06-19-2022 take 1 tablet by mouth once daily acetaminophen 500 mg oral tablet Dose : 1,000 mg = 2 tab(s), Oral, TID, PRN as needed for pain, not to exceed 3000 mg/day, # 100 tab(s), 0 Refill(s), 06/19/22 7:25:00 EDT, Pharmacy: [id number], 175, cm, 06/04/22 15:32:00 EDT, Height Start Date: 06/05/22 Stop Date: 06/19/22 Status: Ordered acetaminophen 325 mg / HYDROcodone bitartrate 5 mg oral tablet (1 source) Opioid Agonist Start: 04-22-2016 take 1 tablet by mouth every six hours as needed for pain acetaminophen-HYDRO codone 325 mg-5 mg oral tablet Dose = 1 tab(s), Oral, q6hr, PRN as needed for pain, 0 Refill(s) Start Date: 04/22/16 Status: Ordered [id number] 200 actuat albuterol 0.09 mg/actuat metered dose inhaler (5 sources) beta2-Adrenergic Agonist Start: 04-22-2016 take 2 puff(s) by inhalation once daily as needed for wheezing Proventil HFA MDI (90 mcg/inh) inhalation aerosol 2 puff(s), Inhalation, qDay, PRN as needed for wheezing, 0 Refill(s) Start Date: 04/22/16 Status: Ordered Completed/Discontinued Medications Medication Drug Class(es) Dates Sig (Normalized) Sig (Original) traMADol hydrochloride 100 mg oral tablet (3 sources) Opioid Agonist Start: 02-24-2023 traMADol 100 mg oral tablet Dose : 100 mg = 1 tab(s), Oral, q6h, PRN as needed for pain, not to exceed 400 mg/day, 0 Refill(s), 100.5 Start Date: 02/24/23 Status: Ordered Problems Active Problems Problem Classification Problem Date Documented Date Episodic/Chronic Chronic obstructive pulmonary disease and bronchiectasis (6 sources) Chronic obstructive lung disease; Translations: [Chronic obstructive pulmonary disease, unspecified] Onset: 06-04-2022 04-22-2016 Chronic Esophageal disorders (1 source) Gastroesophageal reflux disease without esophagitis; Translations: [Gastro-esophageal reflux disease without esophagitis] Onset: 06-04-2022 Chronic Hyperplasia of prostate (1 source) Benign prostatic hypertrophy without outflow obstruction; Translations: [Benign prostatic hyperplasia without lower urinary tract symptoms] Onset: 06-04-2022 Chronic Osteoarthritis (6 sources) Osteoarthritis; Translations: [Unspecified osteoarthritis, unspecified site] Onset: 06-04-2022 09-02-2014 Chronic Other connective tissue disease (1 source) Hip joint prosthesis present; Translations: [Presence of left artificial hip joint] Onset: 06-05-2022 Chronic Residual codes; unclassified (1 source) Tobacco user; Translations: [Tobacco use] Onset: 06-04-2022 Episodic Unclassified (2 sources) Unknown / UNK(Unknown) Onset: 04-25-2016 Past or Other Problems Problem Classification Problem Date Documented Da te Episodic/Chronic Fracture of neck of femur (hip) (1 source) Unspecified fracture of head of left femur, subsequent encounter for closed fracture with routine healing; Translations: [Unspecified fracture of head of left femur, subsequent encounter for closed fracture with routine healing] Onset: 04-25-2016 Episodic Other fractures (1 source) Displaced fracture of posterior wall of left acetabulum, subsequent encounter for fracture with routine healing; Translations: [Displaced fracture of posterior wall of left acetabulum, subsequent encounter for fracture with routine healing] Onset: 04-25-2016 Episodic Unclassified (1 source) Displaced fracture of posterior wall of left acetabulum, sequela Onset: 02-27-2017 Unclassified (1 source) Unspecified fracture of head of left femur, subsequent encounter for closed fracture with routine healing Onset: 04-10-2017 Results Test Name Value Interpretation Reference Range Facil ity Vital Signs Date Time Vital Sign Value Performing Clinician Faci lit 02-24-2023 09:30-[address] ADIA REYES MD [facility] 02-24-2023 09:30-[address] ADIA Bell [facility] 02-24-2023 09:30-0500 Body height [address] ADIA REYES MD [facility] 02-24-2023 09:30-0500 Body weight 100.[address] ADIA REYES MD [facility] 02-24-2023 09:30-0500 Body weight 32.82 kg/m2 DR ADIA REYES MD [facility] 02-24-2023 09:30-0500 Diastolic Blood Pressure Non-Invasive 60 mm[Hg] DR ADIA REYES MD [facility] 02-24-2023 09:30-0500 Heart rate 84 /min DR ADIA REYES MD [facility] 02-24-2023 09:30-0500 Respiratory rate 18 /min DR ADIA REYES MD [facility] 02-24-2023 09:30-0500 Systolic Blood Pressure Non-Invasive 84 mm[Hg] DR ADIA REYES MD [facility] 06-05-2022 11:48-0400 Body temperature 98.6 [degF] DR ADIA REYES MD [facility] 06-05-2022 11:48-0400 Diastolic Blood Pressure Non-Invasive [address] ADIA REYES MD [facility] 06-05-2022 11:48-0400 Heart rate 73 /min DR ADIA REYES MD [facility] 06-05-2022 11:48-0400 Reason For Taking VItal Signs DR ADIA REYES MD [facility] 06-05-2022 11:48-0400 Respiratory rate 20 /min DR ADIA REYES MD [facility] 06-05-2022 11:48-0400 Systolic Blood Pressure Non-Invasive [address] ADIA REYES MD [facility] 06-05-2022 06:23-0400 Body temperature 97.88 [degF] DR ADIA REYES MD [facility] 06-05-2022 06:23-0400 Diastolic Blood Pressure Non-Invasive [address] ADIA REYES MD [facility] 06-05-2022 06:23-0400 Heart rate 76 /min DR ADIA REYES MD [facility] 06-05-2022 06:23-0400 Reason For Taking VItal Signs DR ADIA REYES MD [facility] 06-05-2022 06:23-0400 Respiratory rate 18 /min DR ADIA REYES MD [facility] 06-05-2022 06:23-0400 Systolic Blood Pressure Non-Invasive [address] ADIA REYES MD [facility] 06-05-2022 04:58-0400 Body temperature 98.06 [degF] DR ADIA REYES MD [facility] 06-05-2022 04:58-0400 Diastolic Blood Pressure Non-Invasive [address] ADIA REYES MD [facility] 06-05-2022 04:58-0400 Heart rate 95 /min DR ADIA REYES MD [facility] 06-05-2022 04:58-0400 Respiratory rate 18 /min DR ADIA REYES MD [facility] 06-05-2022 04:58-0400 Systolic Blood Pressure Non-Invasive [address] ADIA REYES MD [facility] 06-04-2022 23:27-0400 Reason For Taking VItal Signs DR ADIA REYES MD [facility] 06-04-2022 15:32-0400 Body height [address] ADIA REYES MD [facility] 06-04-2022 15:32-0400 Body weight 99.[address] ADIA REYES MD [facility] 06-04-2022 15:32-0400 Body weight 32.49 kg/m2 DR ADIA REYES MD [facility] 06-04-2022 15:00-0400 Body temperature 97.34 [degF] DR ADIA REYES MD [facility] 06-04-2022 14:07-0400 Body temperature 96.98 [degF] DR ADIA REYES MD [facility] 06-04-2022 14:00-0400 Respiratory Rate - Anes 30 br/min DR ADIA REYES MD [facility] 06-04-2022 13:55-0400 Respiratory Rate - Anes 12 br/min DR ADIA REYES MD [facility] 06-04-2022 13:50-0400 Respiratory Rate - Anes 10 br/min DR ADIA REYES MD [facility] 06-04-2022 13:40-0400 Body temperature 95.31 [degF] DR ADIA REYES MD [facility] 06-04-2022 13:35-0400 Body temperature 95.32 [degF] DR ADIA REYES MD [facility] 06-04-2022 13:30-0400 Body temperature 95.32 [degF] DR ADIA REYES MD [facility] 06-04-2022 09:12-0400 Body height [address] ADIA REYES MD [facility] 06-04-2022 09:12-0400 Body weight 102.[address] ADIA REYES MD [facility] 06-04-2022 09:12-0400 Heart rate 75 /min DR ADIA REYES MD [facility] 05-20-2022 10:15-[address] ADIA REYES MD [facility] 05-20-2022 10:15-[address] ADIA Bell [facility] 05-20-2022 10:15-0500 Body height [address] ADIA REYES MD [facility] 05-20-2022 10:15-0500 Body weight 102.[address] ADIA REYES MD [facility] 05-20-2022 10:15-0500 Body weight 33.4 kg/m2 DR ADIA REYES MD [facility] 05-20-2022 10:15-0500 Diastolic Blood Pressure Non-Invasive [address] ADIA REYES MD [facility] 05-20-2022 10:15-0500 Heart rate 84 /min DR ADIA REYES MD [facility] 05-20-2022 10:15-0500 Respiratory rate 18 /min DR ADIA REYES MD [facility] 05-20-2022 10:150500 Systolic Blood Pressure Non-Invasive [address] ADIA REYES MD [facility] Encounters Encounter Date Encounter Type Care Provider Facility Start: 03-25-2023 End: 03-26-2023 Evaluation and management of inpatient TASHA LANTIGUA LINING STRAP CLOSER-CLIENT EXPERIENCE ADMINISTRATOR Facility:[facility] Start: 02-24-2023 End: 02-25-2023 ambulatory TASHA LANTIGUA LINING STRAP CLOSER-CLIENT EXPERIENCE ADMINISTRATOR Facility:[facility] Start: 02-24-2023 End: 02-24-[address] ADIA REYES MD [facility] Start: 06-04-2022 End: 06-05-2022 ambulatory TASHA LANTIGUA LINING STRAP CLOSER-CLIENT EXPERIENCE ADMINISTRATOR Facility:[facility] Start: 06-04-2022 End: 06-05-[address] ADIA REYES MD [facility] Start: 05-20-2022 End: 05-20-[address] ADIA REYES MD [facility] Start: 05-20-2022 End: 05-20-[address] ADIA REYES MD [facility] Start: 04-26-2022 End: 04-26-[address] ADIA REYES MD [facility] Start: 10-09-2019 End: 10-09-2019 Emergency department patient visit ANDERSON KOEHLER [facility] Start: 08-28-2017 End: 08-28-2017 Ambulatory KATHLEEN BURGER Facility:[facility] Start: 04-10-2017 End: 04-10-2017 Ambulatory KATHLEEN BURGER [facility] Start: 02-27-2017 End: 02-27-2017 Ambulatory KATHLEEN BURGER Facility:[facility] Procedures Date Procedure Procedure Detail Performing Clinician Start: 06-04-2022 Revision of total hi p replacement DR ADIA REYES MD Payers Date Payer Category Payer Medicare [id number] 2023 Unknown [id number] 2022 Private Health Insurance [id number] 2022 Unknown [id number] 1960 Unknown [id number] 1960 Unknown [id number] 1961 Unknown [id number] 1960 Unknown [id number] Medicaid [id number] Social History Date Type Detail Facility Tobacco smoking status Smokes to bacco daily (finding) [facility] Sex Assigned At Male [facility] Start: 05-20-2022 Tobacco smoking status Heavy t obacco smoker (finding) [facility] Functional Status Date Assessment Result Facility 02-24-2023 Functional Status Sensory Deficits None A [facility] 06-05-2022 Functional Status Room check performed [facility] 06-05-2022 Functional Status Front wheeled walker [facility] 06-05-2022 Functional Status Single level home [facility] 06-05-2022 Functional Status [facility] 06-04-2022 Functional Status Dinner Percent 100 [facility] 06-04-2022 Functional Status Mod A [facility] 06-04-2022 Functional Status ice on, tension pillow in place [facility] 06-04-2022 Functional Status Maintained [facility] Mental Status Date Assessment Result Facility 06-05-2022 Mental Status Oriented x 4 [facility] 06-05-2022 Mental Status [facility] 06-04-2022 Mental Status [facility] 06-04-2022 Mental Status [facility] 06-04-2022 Mental Status [facility] Clinical Notes 06-04-2022 to 05-22-2023 Note Date & Type Note Facility 05-22-2023 Note . MICRO - Microbiology PROCEDURE: Acid Fast Bacilli Culture w Stain if Ind [*1] SOURCE: Tissue BODY SITE: Hip L COLLECTED DATE/TIME: 03/25/2023 14:25 EST RECEIVED DATE/TIME: 03/25/2023 19:07 EST START DATE/TIME: 03/25/2023 19:07 EST FREE TEXT SOURCE: 3. ANTERIOR SY[employer]OVIUM FINAL REPORTS Final Report [] Verified Date/Time/Personnel: 05/22/2023 09:57 EST No growth of Acid Fast Bacilli PRELIMINARY REPORTS Preliminary Report [] Verified Date/Time/Personnel: 05/08/2023 08:22 EST No growth of Acid Fast Bacilli to date. Final report to follow at 8 weeks. STAINS AFS [] Verified Date/Time/Personnel: 03/26/2023 12:32 EST Acid Fast Smear from Concentrated Specimen: Negative Performing Locations *1: This test was performed at: [facility], [address] [place] [address], [id number] , [facility] ([place] 05-22-2023 Note . MICRO - Microbiology PROCEDURE: Acid Fast Bacilli Culture w Stain if Ind [*1] SOURCE: Tissue BODY SITE: Hip L COLLECTED DATE/TIME: 03/25/2023 14:25 EST RECEIVED DATE/TIME: 03/25/2023 19:06 EST START DATE/TIME: 03/25/2023 19:06 EST FREE TEXT SOURCE: 2. SUPERIOR SYN[employer]IUM FINAL REPORTS Final Report [] Verified Date/Time/Personnel: 05/22/2023 09:57 EST No growth of Acid Fast Bacilli PRELIMINARY REPORTS Preliminary Report [] Verified Date/Time/Personnel: 05/08/2023 08:22 EST No growth of Acid Fast Bacilli to date. Final report to follow at 8 weeks. STAINS AFS [] Verified Date/Time/Personnel: 03/26/2023 12:32 EST Acid Fast Smear from Concentrated Specimen: Negative Performing Locations *1: This test was performed at: [address], [facility]- , [facility] ([place]) 05-22-2023 Note . MICRO - Microbiology PROCEDURE: Acid Fast Bacilli Culture w Stain if Ind [*1] SOURCE: Tissue BODY SITE: Hip L COLLECTED DATE/TIME: 03/25/2023 14:25 EST RECEIVED DATE/TIME: 03/25/2023 19:05 EST START DATE/TIME: 03/25/2023 19:05 EST FREE TEXT SOURCE: 1. POSTERIOR SY[employer]IUM FINAL REPORTS Final Report [] Verified Date/Time/Personnel: 05/22/2023 09:57 EST No growth of Acid Fast Bacilli PRELIMINARY REPORTS Preliminary Report [] Verified Date/Time/Personnel: 05/08/2023 08:22 EST No growth of Acid Fast Bacilli to date. Final report to follow at 8 weeks. STAINS AFS [] Verified Date/Time/Personnel: 03/26/2023 12:32 EST Acid Fast Smear from Concentrated Specimen: Negative Performing Locations *1: This test was performed at: [address], [address]- , [facility] ([place] 04-29-2023 Note . MICRO - Microbiology PROCEDURE: Fungal Culture with Stain if Ind [*1] SOURCE: Tissue BODY SITE: Hip L COLLECTED DATE/TIME: 03/25/2023 14:25 EST RECEIVED DATE/TIME: 03/25/2023 19:07 EST START DATE/TIME: 03/25/2023 19:07 EST FREE TEXT SOURCE: 3. ANTERIOR [employer] FINAL REPORTS Final Report [] Verified Date/Time/Personnel: 04/29/2023 09:18 EST No fungus isolated in 4 weeks. PRELIMINARY REPORTS Preliminary Report [] Verified Date/Time/Personnel: 03/28/2023 08:47 EST No fungus isolated to date. Final report to follow. STAINS FUNSM [] Verified Date/Time/Personnel: 03/26/2023 12:33 EST No fungal elements observed by calcofluor white stain. Performing Locations *1: This test was performed at: [address], [address]- , [facility] ([place] 04-29-2023 Note . MICRO - Microbiology PROCEDURE: Fungal Culture with Stain if Ind [*1] SOURCE: Tissue BODY SITE: Hip L COLLECTED DATE/TIME: 03/25/2023 14:25 EST RECEIVED DATE/TIME: 03/25/2023 19:06 EST START DATE/TIME: 03/25/2023 19:06 EST FREE TEXT SOURCE: 2. SUPERIOR SY[employer]IUM FINAL REPORTS Final Report [] Verified Date/Time/Personnel: 04/29/2023 09:17 EST No fungus isolated in 4 weeks. PRELIMINARY REPORTS Preliminary Report [] Verified Date/Time/Personnel: 03/28/2023 08:47 EST No fungus isolated to date. Final report to follow. STAINS FUNSM [] Verified Date/Time/Personnel: 03/26/2023 12:33 EST No fungal elements observed by calcofluor white stain. Performing Locations *1: This test was performed at: [address], [address]- , [facility] ([place] 04-29-2023 Note . MICRO - Microbiology PROCEDURE: Fungal Culture with Stain if Ind [*1] SOURCE: Tissue BODY SITE: Hip L COLLECTED DATE/TIME: 03/25/2023 14:25 EST RECEIVED DATE/TIME: 03/25/2023 19:05 EST START DATE/TIME: 03/25/2023 19:05 EST FREE TEXT SOURCE: 1. POSTERIOR SY[employer] FINAL REPORTS Final Report [] Verified Date/Time/Personnel: 04/29/2023 09:16 EST No fungus isolated in 4 weeks. PRELIMINARY REPORTS Preliminary Report [] Verified Date/Time/Personnel: 03/28/2023 08:47 EST No fungus isolated to date. Final report to follow. STAINS FUNSM [] Verified Date/Time/Personnel: 03/26/2023 12:33 EST No fungal elements observed by calcofluor white stain. Performing Locations *1: This test was performed at: [address], [facility] , [facility] ([place] 04-01-2023 Note . MICRO - Microbiology PROCEDURE: Culture Tissue [*1] SOURCE: Tissue BODY SITE: Hip L COLLECTED DATE/TIME: 03/25/2023 14:25 EST RECEIVED DATE/TIME: 03/25/2023 19:07 EST START DATE/TIME: 03/25/2023 19:07 EST FREE TEXT SOURCE: 3. ANTERIOR [employer] FINAL REPORTS Final Report [] Verified Date/Time/Personnel: 04/01/2023 07:34 EST No aerobes or anaerobes isolated at 7 days. PRELIMINARY REPORTS Preliminary Report [] Verified Date/Time/Personnel: 03/26/2023 11:13 EST No growth to date STAINS GS [] Verified Date/Time/Personnel: 03/25/2023 21:18 EST No organisms seen. Performing Locations *1: This test was performed at: [address], [address] [place] [address] ([place]) 04-01-2023 Note . MICRO - Microbiology PROCEDURE: Culture Tissue [*1] SOURCE: Tissue BODY SITE: Hip L COLLECTED DATE/TIME: 03/25/2023 14:25 EST RECEIVED DATE/TIME: 03/25/2023 19:06 EST START DATE/TIME: 03/25/2023 19:06 EST FREE TEXT SOURCE: 2. SUPERIOR [employer] FINAL REPORTS Final Report [] Verified Date/Time/Personnel: 04/01/2023 07:33 EST 1 colony Streptococcus mitis/oralis group Sensitivity testing is not routinely performed. Plates will be held 48 hours. Contact Microbiology if further testing is indicated. No anaerobes isolated at 5 days. PRELIMINARY REPORTS Preliminary Report [] Verified Date/Time/Personnel: 03/28/2023 14:42 EST 1 colony Streptococcus mitis/oralis group Sensitivity testing is not routinely performed. Plates will be held 48 hours. Contact Microbiology if further testing is indicated. No anaerobes isolated to date. Preliminary Report [] Verified Date/Time/Personnel: 03/26/2023 11:12 EST No growth to date STAINS GS [] Verified Date/Time/Personnel: 03/25/2023 21:18 EST No organisms seen. Performing Locations *1: This test was performed at: [address], [facility] , [facility] ([place] 04-01-2023 Note . MICRO - Microbiology PROCEDURE: Culture Tissue [*1] SOURCE: Tissue BODY SITE: Hip L COLLECTED DATE/TIME: 03/25/2023 14:25 EST RECEIVED DATE/TIME: 03/25/2023 19:05 EST START DATE/TIME: 03/25/2023 19:05 EST FREE TEXT SOURCE: 1. POSTERIOR [employer] FINAL REPORTS Final Report [] Verified Date/Time/Personnel: 04/01/2023 07:32 EST No aerobes or anaerobes isolated at 7 days. PRELIMINARY REPORTS Preliminary Report [] Verified Date/Time/Personnel: 03/26/2023 11:11 EST No growth to date STAINS GS [] Verified Date/Time/Personnel: 03/25/2023 19:50 EST 1+ White Blood Cells No organisms seen. Performing Locations *1: This test was performed at: [address], [facility] , [facility] ([place] 08-01-2022 Note . MICRO - Microbiology PROCEDURE: Acid Fast Bacilli Culture w Stain if Ind [*1] SOURCE: Tissue BODY SITE: Hip L COLLECTED DATE/TIME: 06/04/2022 12:33 EDT RECEIVED DATE/TIME: 06/04/2022 21:16 EDT START DATE/TIME: 06/04/2022 21:16 EDT FREE TEXT SOURCE: 2. FEMORAL MEMBRANE FINAL REPORTS Final Report [] Verified Date/Time/Personnel: 08/01/2022 10:05 EDT No growth of Acid Fast Bacilli PRELIMINARY REPORTS Preliminary Report [] Verified Date/Time/Personnel: 07/18/2022 08:29 EDT No growth of Acid Fast Bacilli to date. Final report to follow at 8 weeks. STAINS AFS [] Verified Date/Time/Personnel: 06/05/2022 12:04 EDT Acid Fast Smear from Concentrated Specimen: Negative Performing Locations *1: This test was performed at: [address], [address]- , [facility] ([place] 08-01-2022 Note . MICRO - Microbiology PROCEDURE: Acid Fast Bacilli Culture w Stain if Ind [*1] SOURCE: Tissue BODY SITE: Hip L COLLECTED DATE/TIME: 06/04/2022 12:33 EDT RECEIVED DATE/TIME: 06/04/2022 21:15 EDT START DATE/TIME: 06/04/2022 21:15 EDT FREE TEXT SOURCE: 3. ACETABULAR MEMBRANE FINAL REPORTS Final Report [] Verified Date/Time/Personnel: 08/01/2022 10:05 EDT No growth of Acid Fast Bacilli PRELIMINARY REPORTS Preliminary Report [] Verified Date/Time/Personnel: 07/18/2022 08:31 EDT No growth of Acid Fast Bacilli to date. Final report to follow at 8 weeks. STAINS AFS [] Verified Date/Time/Personnel: 06/05/2022 12:04 EDT Acid Fast Smear from Concentrated Specimen: Negative Performing Locations *1: This test was performed at: [address], [address]- , [facility] ([place] 08-01-2022 Note . MICRO - Microbiology PROCEDURE: Acid Fast Bacilli Culture w Stain if Ind [*1] SOURCE: Tissue BODY SITE: Hip L COLLECTED DATE/TIME: 06/04/2022 12:33 EDT RECEIVED DATE/TIME: 06/04/2022 21:15 EDT START DATE/TIME: 06/04/2022 21:15 EDT FREE TEXT SOURCE: 1. POSTERIOR SUPERIOR SYN[employer]IUM FINAL REPORTS Final Report [] Verified Date/Time/Personnel: 08/01/2022 10:04 EDT No growth of Acid Fast Bacilli PRELIMINARY REPORTS Preliminary Report [] Verified Date/Time/Personnel: 07/18/2022 08:31 EDT No growth of Acid Fast Bacilli to date. Final report to follow at 8 weeks. STAINS AFS [] Verified Date/Time/Personnel: 06/05/2022 12:04 EDT Acid Fast Smear from Concentrated Specimen: Negative Performing Locations *1: This test was performed at: [address], [facility] , [facility] ([place]) 07-09-2022 Note . MICRO - Microbiology PROCEDURE: Fungal Culture with Stain if Ind [*1] SOURCE: Tissue BODY SITE: Hip L COLLECTED DATE/TIME: 06/04/2022 12:33 EDT RECEIVED DATE/TIME: 06/04/2022 21:16 EDT START DATE/TIME: 06/04/2022 21:16 EDT FREE TEXT SOURCE: 2. FEMORAL MEMBRANE FINAL REPORTS Final Report [] Verified Date/Time/Personnel: 07/09/2022 07:53 EDT No fungus isolated in 4 weeks. PRELIMINARY REPORTS Preliminary Report [] Verified Date/Time/Personnel: 06/07/2022 09:19 EDT No fungus isolated to date. Final report to follow. STAINS FUNSM [] Verified Date/Time/Personnel: 06/05/2022 12:03 EDT No fungal elements observed by calcofluor white stain. Performing Locations *1: This test was performed at: [address], [facility] , [facility] 07-09-2022 Note . MICRO - Microbiology PROCEDURE: Fungal Culture with Stain if Ind [*1] SOURCE: Tissue BODY SITE: Hip L COLLECTED DATE/TIME: 06/04/2022 12:33 EDT RECEIVED DATE/TIME: 06/04/2022 21:15 EDT START DATE/TIME: 06/04/2022 21:15 EDT FREE TEXT SOURCE: 1. POSTERIOR SUPERIOR SYNOVIUM FINAL REPORTS Final Report [] Verified Date/Time/Personnel: 07/09/2022 07:51 EDT No fungus isolated in 4 weeks. PRELIMINARY REPORTS Preliminary Report [] Verified Date/Time/Personnel: 06/07/2022 09:19 EDT No fungus isolated to date. Final report to follow. STAINS FUNSM [] Verified Date/Time/Personnel: 06/05/2022 12:03 EDT No fungal elements observed by calcofluor white stain. Performing Locations *1: This test was performed at: [address], [facility] , [facility] ([place]) 07-09-2022 Note . MICRO - Microbiology PROCEDURE: Fungal Culture with Stain if Ind [*1] SOURCE: Tissue BODY SITE: Hip L COLLECTED DATE/TIME: 06/04/2022 12:33 EDT RECEIVED DATE/TIME: 06/04/2022 21:15 EDT START DATE/TIME: 06/04/2022 21:15 EDT FREE TEXT SOURCE: 3. ACETABULAR MEMBRANE FINAL REPORTS Final Report [] Verified Date/Time/Personnel: 07/09/2022 07:51 EDT No fungus isolated in 4 weeks. PRELIMINARY REPORTS Preliminary Report [] Verified Date/Time/Personnel: 06/07/2022 09:19 EDT No fungus isolated to date. Final report to follow. STAINS FUNSM [] Verified Date/Time/Personnel: 06/05/2022 12:03 EDT No fungal elements observed by calcofluor white stain. Performing Locations *1: This test was performed at: [address], [facility]- , [facility] ([place]) 06-11-2022 Note . MICRO - Microbiology PROCEDURE: Culture Tissue [*1] SOURCE: Tissue BODY SITE: Hip L COLLECTED DATE/TIME: 06/04/2022 12:33 EDT RECEIVED DATE/TIME: 06/04/2022 21:16 EDT START DATE/TIME: 06/04/2022 21:16 EDT FREE TEXT SOURCE: 2. FEMORAL MEMBRANE FINAL REPORTS Final Report [] Verified Date/Time/Personnel: 06/11/2022 07:17 EDT No growth at 7 days. PRELIMINARY REPORTS Preliminary Report [] Verified Date/Time/Personnel: 06/05/2022 09:23 EDT No growth to date STAINS GS [] Verified Date/Time/Personnel: 06/05/2022 00:55 EDT No organisms seen. Performing Locations *1: This test was performed at: [address], [facility] , [facility] ([place]) 06-11-2022 Note . MICRO - Microbiology PROCEDURE: Culture Tissue [*1] SOURCE: Tissue BODY SITE: Hip L COLLECTED DATE/TIME: 06/04/2022 12:33 EDT RECEIVED DATE/TIME: 06/04/2022 21:15 EDT START DATE/TIME: 06/04/2022 21:15 EDT FREE TEXT SOURCE: 3. ACETABULAR MEMBRANE FINAL REPORTS Final Report [] Verified Date/Time/Personnel: 06/11/2022 07:17 EDT No growth at 7 days. PRELIMINARY REPORTS Preliminary Report [] Verified Date/Time/Personnel: 06/05/2022 09:22 EDT No growth to date STAINS GS [] Verified Date/Time/Personnel: 06/05/2022 00:43 EDT No organisms seen. Performing Locations *1: This test was performed at: [address], [facility] , [facility] ([place]) 06-11-2022 Note . MICRO - Microbiology PROCEDURE: Culture Tissue [*1] SOURCE: Tissue BODY SITE: Hip L COLLECTED DATE/TIME: 06/04/2022 12:33 EDT RECEIVED DATE/TIME: 06/04/2022 21:15 EDT START DATE/TIME: 06/04/2022 21:15 EDT FREE TEXT SOURCE: 1. POSTERIOR SUPERIOR SYNOVIUM FINAL REPORTS Final Report [] Verified Date/Time/Personnel: 06/11/2022 07:16 EDT No growth at 7 days. PRELIMINARY REPORTS Preliminary Report [] Verified Date/Time/Personnel: 06/05/2022 09:22 EDT No growth to date STAINS GS [] Verified Date/Time/Personnel: 06/05/2022 00:51 EDT No organisms seen. Performing Locations *1: This test was performed at: [facility], [address] [place] [address], [facility] , [facility] ([place]) 06-05-2022 Note Date of Service 06/05/2022 Chief Complaint Left hip pain Subjective Patient seen and evaluated this morning while resting in bed. He states he is doing well this morning and fully intends to leave today. He reports that his pain is well-controlled in his hip. He denies any fever, chills, cough, shortness of breath, chest pain, abdominal pain, nausea or dysuria. He denies any difficulty voiding. Reviewed lab results and vital signs and feel that patient is medically optimized for discharge home today. All questions answered. Objective Vitals and Measurements T: 37.0 C (Oral) TMIN: 36.5 C (Oral) TMAX: 37.0 C (Oral) HR: 73(Monitored) RR: 20 BP: 108/58 SpO2: 95% Intake and Output 7AM Yesterday to 7AM Today Intake and Output (Last 24 hours) Intake Oral Intake 480.00 Supplement Intake 240.00 Output Stool Count 0.00 Urine Count 3.00 Total Summary Total Intake 720.00 Total Output 0.00 Fluid Balance 720.00 Physical Exam General: No acute distress. Patient is alert and appropriate. Skin: No rash. Skin is warm, dry and intact. HEENT: Head is normocephalic, atraumatic. Pupils are equal, round and reactive. Neck: Supple. No lymphadenopathy, thyromegaly. Lungs: Bilaterally clear but diminished without crepitation or wheeze. Unlabored. Heart: Heart is regular rhythm, S1, S2. No murmurs, gallops or rubs. Abdomen: Abdomen is soft, nontender. Bowels sounds present in all quadrants. Extremities: No clubbing, cyanosis, or edema. Peripheral pulses palpable. No calf tenderness. Left hip surgical dressing is dry and intact. Neurological: Patient is awake and alert to person, place and time. Following simple commands, moving all extremities. Weight Dosing Weight: 99.5 kg (06/04/22) Dosing Weight: 102.3 kg (06/04/22) Medications No qualifying data available Lab Results 06/05 05:29 WBC: 10.7 Hgb: 13.5 L Hct: 40.1 L Platelet: 242 Neutrophil %: 75.3 Glucose Level: 136 H Sodium Level: 140 Potassium Level: 4.3 BUN: 17 Creatinine Lvl (s): 0.83 Imaging Results and Diagnostics XR Hip Left w/Pelvis 4 Views Result Date: June 04, 2022 Verified By: TONY SOSA DO CLINICAL STATEMENT: IMPRESSION: 1. Left total hip arthroplasty in left hemipelvis plate screw fixation without evidence of hardware complication.2. Expected postoperative changes of the left hip soft tissues. EKG No qualifying data available. Assessment/Plan 1. Osteoarthritis Chronic, s/p left hip replacement *POD #1. *Management per primary team. *Continue IV and PO pain medication and antiemetics. 2. BPH (benign prostatic hyperplasia) Chronic *Continue current home medication. *Patient voiding without any difficulty. 3. Chronic obstruct airways disease Chronic, stable *Continue duoneb aerosols as needed for shortness of breath or wheezing. *May use supplemental oxygen as needed. 4. GERD (gastroesophageal reflux disease) Chronic *Continue Famotidine 20 mg PO daily. 5. Tobacco use Chronic *Encouraged cessation. *May have nicotine patch daily. Labs and vital signs reviewed. Patient is medically optimized from hospitalist perspective for discharge home today. DVT prophylaxis with aspirin 81 mg PO BID. Labs, diagnostic test and progress notes reviewed as noted in HPI. Plan of care discussed with patient. All questions answered. Patient verbalizes understanding and is agreeable with plan of care. This case was discussed with collaborating physician, Dr. Wade Burgos. Time Spent 35 minutes Digitally Signed by SHOSHANA CHANG on 06/05/2022 05:36 PM [facility] 06-05-2022 Note Discharge Instructions Thank you for allowing [facility] to assist you with your healthcare needs. The following is important discharge information regarding your hospital visit. Your Care Team /[facility] Your Diagnosis Osteoarthritis BPH (benign prostatic hyperplasia) Chronic obstruct airways disease GERD (gastroesophageal reflux disease) Tobacco use History of revision of total replacement of left hip joint What to do next Follow Up Appointments Follow Up with CHECO AG PA-C, Orthopedic When 06/17/2022 09:00 AM EDT Why: This is your post-op appointment. Follow-up as scheduled. Where: [facility] [address] [place] [address]- Follow Up with [facility] When 06/07/2022 08:00 AM EDT Why: This is your first physical therapy appointment. Follow-up as scheduled. Where: [address] [facility] [place] [address]- [phone] The Following Activity and Diet Have Been Ordered for You FOLLOW POST-OP INSTRUCTIONS The Following Treatments Have Been Ordered for You Discharge Labs No qualifying data available. Discharge Radiology No qualifying data available. Other Therapies OUTPATIENT THERAPY Post Acute Orders No qualifying data available. Allergies Mucinex (Nausea and vomiting) Medications Please ask your primary doctor or pharmacist before taking any other medication not listed, including over the counter drugs, herbal medications, vitamins and or supplements as they may interact with your home medications. What How Much When Why Instructions Last Dose New acetaminophen (acetaminophen 500 mg oral tablet) 2 tab(s) by mouth Three (3) times a day as needed for as needed for pain not to exceed 3000 mg/ day Pickup at [facility] 181106/05/22 @918AM New aspirin (aspirin 81 mg oral delayed release tablet) 1 tab(s) by mouth Two (2) times a day Duration: 30 Days Take 81 mg aspirin twice daily with food for 4 weeks postoperatively for DVT prophylaxis. Pickup at [facility] 181106/05/22 @922AM New doxycycline (doxycycline hyclate 100 mg oral capsule) 1 cap by mouth Every 12 hours Duration: 14 Days Pickup at [facility] 181106/05/22 @1129AM New meloxicam (Mobic 7.5 mg oral tablet) 1 tab(s) by mouth Twice daily with meals Do not take any other nonsteroidal anti-inflammatories while on meloxicam/ Mobic Pickup at [facility] NOT GIVEN New oxyCODONE (oxyCODONE 5 mg oral tablet ( IMMEDIATE release )) See instructions History of revision of total replacement of left hip joint 1-2 tab(s) Oral q4h Pickup at [facility] 181106/05/22 @918AM Unchanged albuterol (Proventil HFA MDI (90 mcg/ inh) inhalation aerosol) 2 puff(s) by inhalation Once a day as needed for as needed for wheezing 06/04/22 @227PM Unchanged cholecalciferol (Vitamin D3 25 mcg (1000 intl units) oral tablet) 2 tab(s) by mouth Every day NOT GIVEN Unchanged docusate-senna (Senokot S 50 mg-8.6 mg oral tablet) 1 tab(s) by mouth Once a day (in the morning) 06/05/22 @918AM Unchanged docusate-senna (Senokot S 50 mg-8.6 mg oral tablet) 3 tab(s) by mouth Daily at bedtime Unchanged DULoxetine (Cymbalta 60 mg oral delayed release capsule) 1 cap by mouth Once a day 06/05/22 @918AM Unchanged finasteride (finasteride 5 mg oral tablet) 1 tab(s) by mouth Daily at bedtime 06/04/22 @921PM Unchanged olodaterol-tiotropium (Stiolto Respimat 60 ACT 2.5 mcg-2.5 mcg/ inh inhalation aerosol) 2 puff(s) by inhalation Once a day NOT GIVEN Unchanged omeprazole (omeprazole 20 mg oral delayed release capsule) 1 cap by mouth Once a day NOT GIVEN Unchanged pregabalin (pregabalin 150 mg oral capsule) 1 cap by mouth Three (3) times a day 06/05/22 @918AM Pharmacy Information [facility]: [address] [place], [place] [id number] [phone] What How Much When Comments Stop Taking traMADol (traMADol 50 mg oral tablet) 1 tab(s) by mouth Three (3) times a day Please take this list to your next doctor s visit. Bring all medications you take, including over the counter medications, herbals and other supplements with you to your doctor s visit. Patients and families are reminded to discard old lists and to update any records with all medication providers or retail pharmacies. Education Materials [facility] Post-operative Instructions PLEASE FOLLOW [facility] POST-OP INSTRUCTIONS GIVEN WATCH FOR SIGNS OF INFECTION: call the office ([phone]) if experencing any of the following: (Usually appears 36-48 hours after surgery) Increased temperature (101 degrees Fahrenheit or higher) Redness or swelling Increased uncontrolled pain Foul odor or drainage Calf discomfort Significant swelling Or if having any chest pain, shortness of breath, or difficulty breathing or swallowing call the office or go the nearest Emergency Room. If you have any questions, please call your doctor at the number listed on your follow up instructions. Form: 338A ([id number]) R: 07/28 Additional Information VACCINATE! IT SAVES LIVES! Members of the community who have not yet received the COVID-19 vaccine and would like to receive it can visit one of [facility] vaccine clinics. There are many vaccine clinic locations within the [facility]. For locations and available times, please visit [email or web address].o hio.gov/. It is important to note that some COVID mobile vaccine clinics are held outdoors and may be canceled in rainy or stormy conditions. To learn more about pediatric vaccinations (ages 5-11), we invite you to visit the [facility] webpage. [email or web address] To learn more about the COVID-19 vaccine, we invite you to visit the CDC website for a list of frequently asked questions. https://www.cdc.gov/coronavirus/ 2019-ncov/vaccines/faq.html [facility] Patient Portal Access Instructions: Stay connected with your healthcare team and access your personal medical information anytime with the [facility] Patient Portal.If you would like a full copy of your medical records, please contact the [facility] Medical Records Department, Friday through Friday between 8a.m. and 4:30p.m. Please follow the directions below to access the portal: 1.Access the email account you provided upon registration to the [facility].2.Look for an invitation email from [facility].3.Open the email and access the invitation link: Accept Invitation to [facility]4.Fill in the required warner to create your account. Sign into [email or web address] with your username and password that you created in the above steps to stay up to date. You can then view a summary of results, a summary of your visits, and the ability to download your summaries to your computer or send the information securely to a physician. Remember that your healthcare information is confidential, so carefully consider who you will allow to register on the [facility] Patient Portal for access to your information. You can also access the [facility] Patient Portal on the [employer] william. Simply click on Health Records under Health Data and then click on the Fran logo. HOW TO SAFELY DISPOSE OF PRESCRIPTION MEDICATIONS Please use one of the following methods to safely dispose of your unused medications. 1.Use a drug disposal kit: the drug disposal pouch allows you to safely discard your old and unused drugs. Ask your nurse to give you one when you are discharged.2.Visit a local take-back location: Many local pharmacies and police departments have programs that collect old and unwanted prescription drugs. Call your local pharmacy or go to http://Paperfold.Advice Wallet/5P1Jl3c to find one close to you.3.Make use of household items: Use cat litter or old coffee grounds to dispose medications if other options are not available. Mix your drugs with these household products, seal them in an airtight container and throw it into the garbage. Call [facility]: [phone] to be sure your drugs can be disposed of in this way. Some medicines may require a different approach.4.Never flush your medications down the toilet. IF YOU HAVE BEEN PRESCRIBED AN OPIOID FOR PAIN If you have been prescribed an opioid (such as hydrocodone, oxycodone or morphine), it is critical to understand the possible side effects and risks of opioid pain medications. Even when taken as directed, opioids can have several side effects including: Tolerance, meaning you might need to take more of a medication for the same pain relief. Nausea, vomiting and/or constipation. Sleepiness, dizziness, dry mouth, confusion, depression or itching. Physical dependence, meaning you have withdrawal symptoms when a medication is stopped, can develop within a few days. KNOW YOUR RESPONSIBILITIES It is important to know exactly how much and how often to take the opioid pain medications you are prescribed. Never take opioids in higher amounts or more often than prescribed. Do not combine opioids with alcohol or other drugs that cause drowsiness, such as benzodiazepines, also known as benzos, including diazepam and alprazolam, muscle relaxants or sleep aids. Never sell or share prescription opioids. This is illegal. Store opioids in a secure place and out of reach of others (including children, family, friends and visitors). The last page of this document has been signed and retained as a CHART COPY. Signatures Patient Education Materials 5 - [facility] Post-op Instruction 10/2016 (13170) Medication Leaflets My discharge plan and instructions have been reviewed and explained to me and I,KOKO GAGE understand my current condition and have read and understand these discharge instructions. I have received a written copy of the plan/instructions. If I have questions, I am aware that I should contact my doctor. Patient/Helix Coil Winder Signature: Date/Time: Relationship to Patient: Witness Name/Signature: Date/Time: [facility] 06-05-2022 Hospital Discharg e instructions Patient Education 06/05/2022 07:25:07 5 - [facility] Post-op Instruction 10/2016 (24105) [facility] Post-operative Instructions PLEASE FOLLOW [facility] POST-OP INSTRUCTIONS GIVEN WATCH FOR SIGNS OF INFECTION: call the office ([phone]) if experencing any of the following: (Usually appears 36-48 hours after surgery) Increased temperature (101 degrees Fahrenheit or higher) Redness or swelling Increased uncontrolled pain Foul odor or drainage Calf discomfort Significant swelling Or if having any chest pain, shortness of breath, or difficulty breathing or swallowing call the office or go the nearest Emergency Room. If you have any questions, please call your doctor at the number listed on your follow up instructions. Form: 338A (35166) R: 07/28 Follow Up Care 05/03/2022 10:50:59 With:[facility] Address: [address] [place] [address]. [place] [phone] When:06/07/2022 08:00:00 Comments:This is your first physical therapy appointment. Follow-up as scheduled. With:CHECO AG PA-C, Orthopedic Address: [facility] [address] [place] [phone] When:06/17/2022 09:00:00 Comments:This is your post-op appointment. Follow-up as scheduled. [facility] 06-05-2022 Note Date of Service June 05, 2022 Subjective The patient was sitting in bed upon examination. Patient denies any chest pain, shortness of breath, dizziness, lightheadedness, nausea or vomiting, or calf pain. No adverse overnight events. Pain has been controlled on medications. Patient states that he wants to leave by noon today. He states he does not like staying in hospitals. He seems to be doing well this morning after his revision total hip arthroplasty. Vitals have been stable and lab work stable. I did discuss with the patient that as long as he tolerates therapy, is medically stable and pain well controlled we can attempt discharge home today. Again patient is adamant that he leaves today. Objective Vitals and Measurements T: 36.7 C (Oral) TMIN: 34.32 C TMAX: 36.7 C (Oral) HR: 95(Monitored) RR: 18 BP: 119/89 SpO2: 96% HT: 175 cm WT: 99.5 kg BMI: 32.49 Intake and Output 7AM Yesterday to 7AM Today Intake and Output (Last 24 hours) Intake Administration Information 1700.00 Oral Intake 480.00 Supplement Intake 0.00 Output Intra-Op EBL 200.00 Stool Count 0.00 Urine Count 3.00 Total Summary Total Intake 2180.00 Total Output 200.00 Fluid Balance 1980.00 Physical Exam Vital signs stable, afebrile SCDs and PATRICIO hose are in place bilaterally Left hip is soft and supple Patient is able to plantarflex and dorsiflex actively Sensation is intact to saphenous, sural, superficial and deep peroneal, and tibial distribution Dressing is clean dry and intact Negative signs and symptoms of DVT, negative Homans bilaterally Weight Dosing Weight: 99.5 kg (06/04/22) Dosing Weight: 102.3 kg (06/04/22) Medications Medications (28) Active Scheduled: (16) acetaminophen 500 mg Tablet 1,000 mg 2 tab(s), Oral, q6hr aspirin 81 mg Chewable 81 mg 1 tab(s), Oral, BIDM bisacodyl 5 mg EC tablet 10 mg 2 tab(s), Oral, Once docusate sodium 100 mg Capsule 100 mg 1 cap(s), Oral, BID docusate-senna (Senokot S) 50 mg-8.6 mg Tablet 2 tab(s), Oral, BID doxycycline hyclate 100 mg Capsule 100 mg 1 cap(s), Oral, q12h duloxetine [address] capsule 60 mg 1 cap(s), Oral, qDay famotidine 20 mg tablet 20 mg 1 tab(s), Oral, qDay finasteride 5 mg tablet 5 mg 1 tab(s), Oral, qHS magnesium hydroxide 8% Suspension 30 mL UD 30 mL, Oral, Daily meloxicam 7.5 mg tablet 7.5 mg 1 tab(s), Oral, BIDM multivitamin (Myadec) with minerals Therapeutic Multiple Vitamins with Minerals Tablet 1 tab(s), Oral, qDayM Nicoderm patch REMOVAL 1 EA, Miscellaneous, q24h nicotine 21 mg/24 hr ER patch 21 mg 1 patch(es), Transdermal, q24h ondansetron 2 mg/ 1 mL 2 mL INJ 4 mg 2 mL, IV Push, q8h pregabalin 50 mg capsule 150 mg 3 cap(s), Oral, TID Continuous: (1) Lactated Ringers 1,000 mL 1,000 mL, Intravenous, 100 mL/hr PRN: (11) acetaminophen 325 mg Tablet 650 mg 2 tab(s), Oral, q4h albuterol - ipratropium 2.5 mg-0.5 mg/3 mL Inhal Sharyn UD 3 mL, Inhalation, q4hRT diphenhydramine 25 mg tablet 25 mg 1 tab(s), Oral, q6h diphenhyDRAMINE 50 mg/mL (1 mL) INJ 25 mg 0.5 mL, IV Push, q6h ketorolac 30 mg/mL (1 mL) vial 15 mg 0.5 mL, IV Push, q6h morphine 2 mg/mL 1 mL syringe 2 mg 1 mL, IV Push, q1h ondansetron 2 mg/ 1 mL 2 mL INJ 4 mg 2 mL, IV Push, q8h oxycodone 5 mg tablet (immediate release) 5 mg 1 tab(s), Oral, q4h oxycodone 5 mg tablet (immediate release) 10 mg 2 tab(s), Oral, q4h prochlorperazine 10 mg/2 mL vial 5 mg 1 mL, IV Push, q6h sodium biphosphate-sodium phosphate 19 gm-7 gm Enema 133 mL, Rectal, qDay Lab Results 06/05 05:29 WBC: 10.7 Hgb: 13.5 L Hct: 40.1 L Platelet: 242 Neutrophil %: 75.3 Glucose Level: 136 H Sodium Level: 140 Potassium Level: 4.3 BUN: 17 Creatinine Lvl (s): 0.83 EKG No qualifying data available. Assessment/Plan 1. Osteoarthritis 1. Status post revision left total hip arthroplasty postop day #1 2. Continue pain medications: Tylenol, meloxicam, oxycodone. Do not take any other nonsteroidal anti-inflammatories while on meloxicam/Mobic. I also discussed with the patient his pain management and taking tramadol chronically. Patient was instructed he has not to take tramadol in addition to his postoperative pain medications. We are also reaching out to pain management for appropriate management postoperatively. 3. DVT prophylaxis: Take 81 mg aspirin twice daily with food for 4 weeks postoperatively for DVT prophylaxis. Patient denies past history of DVT or pulmonary embolism. Patient has been up walking without difficulty. 4. Physical therapy: Weightbearing as tolerated with walker. Continue to follow posterior hip dislocation precautions for 3 months postoperatively. This was discussed with the patient and he voiced understanding. 5. H & H: 13.5/40.1, asymptomatic. Postoperative anemia secondary to acute blood loss from surgery without intraoperative complications. 6. Continue antibiotics postoperatively while following cultures: Culture tissues have been without any growth. He will be placed on doxycycline for 2 weeks postoperatively. He was instructed on increased risk of sunburn and sensitivity to the sunlight with this medication. Also recommended probiotic while taking antibiotic. 7. Encouraged incentive spirometry 8. Continue postoperative medical management per medicine 9. Disposition: Patient states he is adamant that he is leaving today from the hospital. I did explain to him that we want to make sure he is discharged safely in which she tolerates physical therapy, pain is well controlled and medically stable. He would like his prescriptions E scribed to Katie Correa. He has outpatient physical therapy established. She will follow-up per postop instructions. Patient was instructed to contact her office with any postoperative complications. I have reviewed the [place] Automated Rx Reporting System (OARRS) report for this patient for refill pattern and other prescriber involvement as part of the appropriate surveillance for the provision of acute and chronic controlled medications. The report was requested and reviewed on the date of this entry, and was considered in the prescribing process This dictation was created using voice recognition software. Phonetic and/or grammatical errors may exist. 2. BPH (benign prostatic hyperplasia) 3. Chronic obstruct airways disease 4. GERD (gastroesophageal reflux disease) 5. Tobacco use Digitally Signed by CHECO AG PA-C on 06/05/2022 07:24 AM [facility] 06-05-2022 Note Date of Service June 05, 2022 Subjective The patient was sitting in bed upon examination. Patient denies any chest pain, shortness of breath, dizziness, lightheadedness, nausea or vomiting, or calf pain. No adverse overnight events. Pain has been controlled on medications. Patient states that he wants to leave by noon today. He states he does not like staying in hospitals. He seems to be doing well this morning after his revision total hip arthroplasty. Vitals have been stable and lab work stable. I did discuss with the patient that as long as he tolerates therapy, is medically stable and pain well controlled we can attempt discharge home today. Again patient is adamant that he leaves today. Objective Vitals and Measurements T: 36.7 C (Oral) TMIN: 34.32 C TMAX: 36.7 C (Oral) HR: 95(Monitored) RR: 18 BP: 119/89 SpO2: 96% HT: 175 cm WT: 99.5 kg BMI: 32.49 Intake and Output 7AM Yesterday to 7AM Today Intake and Output (Last 24 hours) Intake Administration Information 1700.00 Oral Intake 480.00 Supplement Intake 0.00 Output Intra-Op EBL 200.00 Stool Count 0.00 Urine Count 3.00 Total Summary Total Intake 2180.00 Total Output 200.00 Fluid Balance 1980.00 Physical Exam Vital signs stable, afebrile SCDs and PATRICIO hose are in place bilaterally Left hip is soft and supple Patient is able to plantarflex and dorsiflex actively Sensation is intact to saphenous, sural, superficial and deep peroneal, and tibial distribution Dressing is clean dry and intact Negative signs and symptoms of DVT, negative Homans bilaterally Weight Dosing Weight: 99.5 kg (06/04/22) Dosing Weight: 102.3 kg (06/04/22) Medications Medications (28) Active Scheduled: (16) acetaminophen 500 mg Tablet 1,000 mg 2 tab(s), Oral, q6hr aspirin 81 mg Chewable 81 mg 1 tab(s), Oral, BIDM bisacodyl 5 mg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
[2023-06-06 11:21] VITALS: BP 123/84; PULSE 85; RESP 18; TEMP 36.6; O2SAT 94
== END 2023-06-06 11:22 | disposition home or self-care (01) ==
PROVIDERS: Emergency Provider Emergency Medicine; Visit Provider Emergency Medicine
DX: S20.20XA Contusion of thorax, unspecified, initial encounter (principal); J44.9 Chronic obstructive pulmonary disease, unspecified; F17.210 Nicotine dependence, cigarettes, uncomplicated; W19.XXXA Unspecified fall, initial encounter; Z96.642 Presence of left artificial hip joint; Z79.51 Long term (current) use of inhaled steroids
CPT/HCPCS: 71101; 99282

== ENCOUNTER 2023-06-19 10:00 | Outpatient (RCR) | payer OTHER, SELFPAY ==
--- NOTE | 2023-03-28 13:01 | HP.PTEVAL_ITS ---
Patient's Visit Information Visit Information Visit Information: KOKO GAGE is a 62 year old M referred to Physical Therapy by Dr. Luigi Hoskins DO with a diagnosis of L KACEY revision 03/25/22. Date of Evaluation: 03/28/23 Physical Therapist: Lai Siegel, PT, ATC Visit Plan Frequency: 2-3x /Week Duration: 4-6 Weeks Plan: L hip long axis distractions and mobilizations, stretching and stre ngthening, balance and proprio, core strengthening, nustep, and HEP Subjective Subjective: DOS: 03/25/22. Pt reports he had a L KACEY revision surgery performed at that time. Pt notes this is the forth surgery he has had on his L hip. Pt reports he had a L KACEY performed about 9 months ago, but he experienced a couple of dislocations which resulted in him needing to have a L KACEY revision. Pt reports he is glad he had the surgery at this time. Pt reports he is in a lot of pain, but less than he was prior to the surgery. 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 Pt reports he has sleep difficulty at this time secondary to muscle spasms and not being able to lye on his L side. Pt has no stairs at home other than 2 stairs that he negotiates one at a time. 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 3/10 pain while sitting he3re at rest, 8/10 pain at worst. Pain L hip: Pain Intensity (Out of 10): 3 Pain Intensity Range: 8 Objective Objective: Neuro: B LE sensation is WNL to light touch. B patellar reflex= 2/3 Observation: Incision is still covered with sponge. No obvious signs of infection. ROM: R hip flex= 70, ext= 0; L hip flex= 35, ext= 0 degrees MMT: R hip flex= 28, ext= 31; L hip flex= 7, ext= 5 #F TU.52 Gait: Pt is able to ambulate approximately 145 feet until needing to rest secondary to pain Balance/Special Test Scores WOMAC Total Score: 63 WOMAC Percentatge: 34.3800 Goals Goal 1:: Decrease L hip pain x 50% to aid with sleep Goal Time Frame: 4-6 Weeks Goal 2:: Increase L hip strength x 15 #F to aid with stair negotiation Goal Time Frame: 4-6 Weeks Goal 3:: Pt will be able to ambulate greater than 600' with LRD to aid with community ambulation. Goal Time Frame: 4-6 Weeks Goal 4:: I with HEP Goal Time Frame: 4-6 Weeks Rehabilitation Potential Physical Therapy Diagnosis: Pt has L hip pain, weakness, and limited ambulatory ability secondary to L KACEY Rehabilitation Potential: Good Anticipated Interventions Patient/Client Instruction: Educate patient on: Condition and Plan of Care For the Purpose of:: To improve self management Therapeutic Exercise to Include: Strength training, Endurance training, Balance training, Flexibilty training, Gait and locomotor training, Active ROM and Dynamic Lumbar Stabilization For the Purpose of:: To decrease pain, To increase ROM and To improve muscle performance and motor function Cryotherapy (ice pack, ice massage): Yes For the Purpose of:: To decrease pain Text: Thank you for the opportunity to evaluate your patient. For Medicare and Medicare HMO plans, please review the plan of care and approve it. It will need to be FAXED BACK to us at [phone] for Medicare purposes. For Medicare only, by signing this I certify the plan of care. Please let me know if there are questions or concerns regarding this plan of care. Physician Signature: Date:
--- NOTE | 2023-04-24 11:31 | HP.PTREVAL ---
Re-Evaluation Intro: Dr. Luigi Hoskins, DO, It has been my pleasure to treat KOKO GAGE over the last 9 visits for L KACEY revision 03/25/22. Please see the progress note below for an update on the physical therapy plan of care! Subjective Subjective: Pt reports he feels like he has made some improvements. He is able to stand and walk longer at this time. His L LE wants to give out on occasion Objective Objective/Function: L hip pain ranges from 3-6/10 L hip MMT: flex= 23, ext= 32 #F Pt is able to ambulate 340 feet until needing to rest Pt is showing excellent progress toward Rx goals at this time. Plan Plan Plan: Continue with L hip strengthening, balance, and gait training Balance/Gait/Functional tests Balance/Special Test Scores Lower Extremity Functional Score: 38 WOMAC Total Score: 63 WOMAC Percentage: 34.3800 Goals Goals Goal 1:: Decrease L hip pain x 50% to aid with sleep Goal Time Frame: 4-6 Weeks Goal Progress: Progressing Goal 2:: Increase L hip strength x 15 #F to aid with stair negotiation Goal Time Frame: 4-6 Weeks Goal Progress: Goal Met Goal 3:: Pt will be able to ambulate greater than 600' with LRD to aid with community ambulation. Goal Time Frame: 4-6 Weeks Goal Progress: Progressing Goal 4:: I with HEP Goal Time Frame: 4-6 Weeks Goal Progress: Progressing Goal 5:: Increase L hip strength to 90% of R LE Goal Time Frame: 4-6 Weeks Goal Progress: New goal Anticipated Interventions Anticipated Interventions Patient/Client Instruction: Educate patient on: Condition and Plan of Care For the Purpose of:: To improve self management Therapeutic Exercise to Include: Strength training, Endurance training, Balance training, Flexibilty training, Gait and locomotor training, Active ROM and Dynamic Lumbar Stabilization For the Purpose of:: To decrease pain, To increase ROM and To improve muscle performance and motor function Cryotherapy (ice pack, ice massage): Yes For the Purpose of:: To decrease pain Re-Evaluation Ending Re-evaluation ending: Please do not hesitate to contact me at [phone] by phone or if you have questions or concerns regarding this new plan of care! Sincerely, Lai Siegel, PT, ATC
--- NOTE | 2023-05-14 10:36 | HP.PTREVAL ---
Re-Evaluation Intro: Dr. Luigi Hoskins, DO, It has been my pleasure to treat KOKO GAGE over the last 15 visits for L KACEY revision 03/25/22. Please see the progress note below for an update on the physical therapy plan of care! Subjective Subjective: I am still not able to walk without a cane. Objective Objective/Function: L hip ranges from 2-6/10 L hip MMT: flex= 19, ext= 34 #F Pt is able to ambulate 340 feet with use of cane until needing a rest Pt is showing significant improvement at this time with strength and ambulatory ability at this time Plan Plan Plan: Attempt to get approval for 15 more Rx sessions Balance/Gait/Functional tests Balance/Special Test Scores Lower Extremity Functional Score: 39 WOMAC Total Score: 63 WOMAC Percentage: 34.3800 Goals Goals Goal 1:: Decrease L hip pain x 50% to aid with sleep Goal Time Frame: 4-6 Weeks Goal Progress: Progressing Goal 2:: Increase L hip strength x 15 #F to aid with stair negotiation Goal Time Frame: 4-6 Weeks Goal Progress: Goal Met Goal 3:: Pt will be able to ambulate greater than 600' with LRD to aid with community ambulation. Goal Time Frame: 4-6 Weeks Goal Progress: Progressing Goal 4:: I with HEP Goal Time Frame: 4-6 Weeks Goal Progress: Progressing Goal 5:: Increase L hip strength to 90% of R LE Goal Time Frame: 4-6 Weeks Goal Progress: Progressing Anticipated Interventions Anticipated Interventions Patient/Client Instruction: Educate patient on: Condition and Plan of Care For the Purpose of:: To improve self management Therapeutic Exercise to Include: Strength training, Endurance training, Balance training, Flexibilty training, Gait and locomotor training, Active ROM and Dynamic Lumbar Stabilization For the Purpose of:: To decrease pain, To increase ROM and To improve muscle performance and motor function Cryotherapy (ice pack, ice massage): Yes For the Purpose of:: To decrease pain Re-Evaluation Ending Re-evaluation ending: Please do not hesitate to contact me at [phone] by phone or if you have questions or concerns regarding this new plan of care! Sincerely, Lai Siegel, PT, ATC
--- NOTE | 2023-06-19 11:00 | HP.PTDCSUM ---
Discharge Summary D/C summary: It has been my pleasure to treat KOKO GAGE referred by Dr. Luigi Hoskins DO, with the diagnosis of L KACEY revision 03/25/22 for a total of 25 visit(s). Discharge Date: Please see the following information for a summary of their discharge status. Subjective Subjective: I think I am where I am going to be. Pain L hip: Pain Intensity (Out of 10): 5 LB: Pain Intensity (Out of 10): 0 Overall Improvement % Improvement: 75 Objective Objective/Function: L hip pain is 5/10 consistently L hip MMT: flex= 14, ext= 19 #F L hip ROM: flex= 75, ext= 10 degrees Pt is still limited with ambulation at 340' with cane Pt is I with gym routine Goals Goal 1:: Decrease L hip pain x 50% to aid with sleep Goal Progress: Progressing Goal 2:: Increase L hip strength x 15 #F to aid with stair negotiation Goal Progress: Goal Met Goal 3:: Pt will be able to ambulate greater than 600' with LRD to aid with community ambulation. Goal Progress: Progressing Goal 4:: I with HEP Goal Progress: Goal Met Goal 5:: Increase L hip strength to 90% of R LE Goal Progress: Progressing Plan Plan: Discharge to I gym routine D/C Information d/c sentence: If there are questions or concerns regarding this patient's physical therapy, please feel free to call me at [phone]. Thank you for the referral of this patient. Sincerely, Lai Siegel, PT, ATC Balance/Gait/Functional tests Balance/Special Test Scores Lower Extremity Functional Score: 36 WOMAC Total Score: 63 WOMAC Percentage: 34.3800 Improvement % Improvement: 75
== END 2023-06-19 19:00 | disposition home or self-care (01) ==
LOC: PT 10:00
PROVIDERS: Referring Provider Orthopaedic Surgery; Visit Provider Orthopaedic Surgery
DX: T84.021D Dislocation of internal left hip prosthesis, subsequent encounter (principal); Z96.642 Presence of left artificial hip joint
CPT/HCPCS: 97110; 97161